=== PATIENT | male | born 1965 | race Caucasian/White ===

== ENCOUNTER 2023-03-02 02:38 | Inpatient (IN) ==
[2023-03-02] MEDS ORDERED: VANCOMYCIN CONSULT ACTIVE PRN (03:04)
[2023-03-02] MEDS ORDERED: VANCOMYCIN HCL 2,250 MG in SODIUM CHLORIDE 0.9% 500 ML IV ONE (03:04)
[2023-03-02] MEDS ORDERED: cefTRIAXone SODIUM 2,000 MG/50 ML BAG IV STA (03:04)
--- NOTE | 2023-03-02 03:10 | Emergency Department Note ---
History of Present Illness General Chief complaint: Infection Stated complaint: STAFF INFECTION ON LEFT FOOT/CALF Time Seen by Provider: 03/02/23 02:49 History of Present Illness Maximum Pain Intensity: 7 This 57-year-old prisoner presents the ER for worsening left lower leg pain and swelling for the past few days currently on Augmentin and clindamycin from the present. Patient denies chest pain, dyspnea, numbness, tingling, trauma to the area, history of IV drug abuse. Patient was concerned it started to drain and came in. Home Medications Medication Instructions Recorded Confirmed Type Prilosec 20 mg PO DAILY 03/02/23 03/02/23 History levothyroxine 125 mcg tablet 125 mcg PO DAILY 03/02/23 03/02/23 History Past Med/Surg History Social History Smoking Status: Former smoker Review of Systems A total of 10 systems reviewed and were otherwise negative Physical Exam Vital Signs Vital Signs - 24 hr 03/02/23 02:45 03/02/23 03:08 03/02/23 03:04 Temperature 36.5 C Temperature Source Temporal Artery Scan Pulse Rate 73 83 Pulse Rate [Apical] 75 Pulse Rhythm [Apical] Regular Pulse Strength [Apical] Normal Respiratory Rate 16 16 Respiratory Effort / Characteristics Non-Labored Spontaneous Non-Labored Respiratory Depth Normal Normal Respiratory Pattern Regular Blood Pressure 118/84 Blood Pressure [Right Arm] 120/58 L Blood Pressure Mean 95 Blood Pressure Mean [Right Arm] 78 Blood Pressure Position Sitting Pulse Oximetry 96 97 Oxygen Delivery Method Room Air Room Air Sepsis Recent Fever Within 48 Hours No Sepsis New/Unexplained Change in Mental Status N/A Sepsis Action Taken by Nursing No Action Required 03/02/23 03:25 03/02/23 03:34 Temperature Temperature Source Pulse Rate Pulse Rate [Apical] Pulse Rhythm [Apical] Pulse Strength [Apical] Respiratory Rate Respiratory Effort / Characteristics Non-Labored Respiratory Depth Normal Respiratory Pattern Regular Blood Pressure Blood Pressure [Right Arm] Blood Pressure Mean Blood Pressure Mean [Right Arm] Blood Pressure Position Pulse Oximetry 98 Oxygen Delivery Method Room Air Room Air Sepsis Recent Fever Within 48 Hours Sepsis New/Unexplained Change in Mental Status Sepsis Action Taken by Nursing VITALS: Vitals are noted on the nurse's note and reviewed by myself. Vital signs stable. GENERAL: White male, in no acute distress, nondiaphoretic, well-developed well- nourished. SKIN: left lower leg erythematous and edematous With serosanguineous drainage concerning for cellulitis, the rest of the skin was without rashes, erythema, edema, or bruising. There is no tenting of the skin. Capillary reflex less than 2 seconds. HEAD: Normocephalic atraumatic. EARS: External auditory canals clear, EYES: Pupils equal round and reactive to light and accommodation. Conjunctivae without injection, sclerae without icterus. Extraocular movements intact. NOSE: Patent, turbinates without inflammation or discharge. MOUTH: Mucous membranes moist. Pharynx without erythema or exudate. Uvula midline. Airway patent. Tongue does not deviate. NECK: Supple without nuchal rigidity. No lymphadenopathy. No thyromegaly. Cervical spine is nontender. No JVD. HEART: Regular rate and rhythm LUNGS: Clear to auscultation bilaterally without wheezes, rales or rhonchi. No retractions or accessory muscle use. ABDOMEN: Positive bowel sounds x 4. Normal tympanic percussion. Soft, nontender, without masses or organomegaly. Fallon sign negative. No guarding or rebound tenderness. No CVA tenderness MUSCULOSKELETAL: No muscle atrophy noted. No crepitus to the lower extremit ies. NEURO: Patient was alert and oriented to person place and time. Normal sensation to light and sharp touch. No focal neurological deficits. Course Administered Medications Vancomycin HCl 2,250 mg/ (Sodium Chloride) 545 mls @ 200 mls/hr IV NOW ONE Stop: 03/02/23 05:47 Last Admin: 03/02/23 04:03 Dose: 200 mls/hr Documented By: DALE Discontinued Medications Sodium Chloride (Nss) 1,000 mls @ 999 mls/hr IV .Q1H1M CECI Stop: 03/02/23 04:15 Last Infusion: 03/02/23 04:17 Dose: 0 mls/hr Documented By: Admin: 03/02/23 03:35 Dose: 999 mls/hr Documented By: DALE Ceftriaxone Sodium (Rocephin) 2,000 mg in 50 mls @ 100 mls/hr IV NOW STA Stop: 03/02/23 03:33 Last Infusion: 03/02/23 04:17 Dose: 0 mls/hr Documented By: Admin: 03/02/23 03:42 Dose: 100 mls/hr Documented By: DALE Medical Decision Making Medical Records Attestation: I reviewed the patient's medical records. Home Medications Current Medication List: was personally reviewed by me Laboratory Data Attestation: I reviewed the patient's lab results. 03/02/23 03:17 03/02/23 03:17 Lab Results 03/02/23 03/02/23 03/02/23 Range/Units 03:17 03:17 03:17 WBC 11.53 H (4.8-10.8) K/ul RBC 4.61 L (4.70-6.10) M/uL Hgb 14.2 (14.0-18.0) g/dl Hct 40.3 L (42.0-52.0) % MCV 87.4 (80.0-100.0) fL MCH 30.8 (25.0-34.0) pg MCHC 35.2 (32.0-36.0) g/dL RDW Std Deviation 42.0 (36.4-46.3) fL RDW Coeff of Augustine 13.1 (11.5-14.5) % Plt Count 164 (130-400) K/uL MPV 11.6 (9.4-12.4) fL Immature Gran % (Auto) 1.1 % Neut % (Auto) 57.0 % Lymph % (Auto) 26.0 % [place] % (Auto) 12.9 % Eos % (Auto) 2.6 % Baso % (Auto) 0.4 % Neut # (Auto) 6.56 H (1.40-6.50) K/uL Lymph # (Auto) 3.00 (1.20-3.40) K/uL [place] # (Auto) 1.49 H (0.11-0.59) K/uL Eos # (Auto) 0.30 (0.00-0.50) K/uL Baso # (Auto) 0.05 (0.00-0.20) K/uL Immature Gran # (Auto) 0.13 (0.01-0.20) K/uL ESR (0-20) mm/hr Sodium 135 L (136-145) mmol/L Potassium 3.2 L (3.5-5.1) mmol/L Chloride 102 (98-107) mmol/L Carbon Dioxide 26 (21-32) mmol/L Anion Gap 7 (3-11) BUN 16 (6-23) mg/dl Creatinine 0.66 (0.6-1.4) mg/dl Est Cr Clr Drug Dosing 164.3 ml/min Est GFR ( Amer) 124.4 ml/min Est GFR (Non-Af Amer) 107.3 ml/min BUN/Creatinine Ratio 24.2 H (10-20) Glucose 108 H (70-99(Fasting)) mg/dl Lactate 1.0 (0.4-2.0) mmol/L Calcium 8.5 L (8.6-10.3) mg/dl Magnesium 1.8 (1.7-2.4) mg/dl Total Bilirubin 1.0 (0.2-1.0) mg/dl Direct Bilirubin 0.2 (0-0.2) mg/dl AST 41 H (13-39) U/L ALT 38 (7-52) U/L Alkaline Phosphatase 88 (34-104) U/L Total Creatine Kinase 157 (30-223) U/L C-Reactive Protein 9.22 H (0-0.5) mg/dl Total Protein 7.3 (6.0-8.3) gm/dl Albumin 3.6 (3.4-5.0) gm/dl Procalcitonin (0-0.5) ng/ml 03/02/23 03/02/23 Range/Units 03:17 03:17 WBC (4.8-10.8) K/ul RBC (4.70-6.10) M/uL Hgb (14.0-18.0) g/dl Hct (42.0-52.0) % MCV (80.0-100.0) fL MCH (25.0-34.0) pg MCHC (32.0-36.0) g/dL RDW Std Deviation (36.4-46.3) fL RDW Coeff of Augustine (11.5-14.5) % Plt Count (130-400) K/uL MPV (9.4-12.4) fL Immature Gran % (Auto) % Neut % (Auto) % Lymph % (Auto) % [place] % (Auto) % Eos % (Auto) % Baso % (Auto) % Neut # (Auto) (1.40-6.50) K/uL Lymph # (Auto) (1.20-3.40) K/uL [place] # (Auto) (0.11-0.59) K/uL Eos # (Auto) (0.00-0.50) K/uL Baso # (Auto) (0.00-0.20) K/uL Immature Gran # (Auto) (0.01-0.20) K/uL ESR 59 H (0-20) mm/hr Sodium (136-145) mmol/L Potassium (3.5-5.1) mmol/L Chloride (98-107) mmol/L Carbon Dioxide (21-32) mmol/L Anion Gap (3-11) BUN (6-23) mg/dl Creatinine (0.6-1.4) mg/dl Est Cr Clr Drug Dosing ml/min Est GFR ( Amer) ml/min Est GFR (Non-Af Amer) ml/min BUN/Creatinine Ratio (10-20) Glucose (70-99(Fasting)) mg/dl Lactate (0.4-2.0) mmol/L Calcium (8.6-10.3) mg/dl Magnesium (1.7-2.4) mg/dl Total Bilirubin (0.2-1.0) mg/dl Direct Bilirubin (0-0.2) mg/dl AST (13-39) U/L ALT (7-52) U/L Alkaline Phosphatase (34-104) U/L Total Creatine Kinase (30-223) U/L C-Reactive Protein (0-0.5) mg/dl Total Protein (6.0-8.3) gm/dl Albumin (3.4-5.0) gm/dl Procalcitonin 0.39 (0-0.5) ng/ml Imaging Data Attestation: I personally reviewed and interpreted this imaging study as fol lows: [facility] Narrative Prior records reviewed and summarized as above. Triage Nursing notes reviewed. Additional history obtained from correctional officers. The patient's history was concerning for swelling and redness of the skin. Differential diagnosis: Etiologies such as cellulitis, abscess, MRSA infection, DVT, necrotizing fasciitis, dermatitis, drug eruption, as well as others were entertained.. Physical examination: The physical examination was consistent with cellulitis ER treatment provided: Rocephin, clindamycin and vancomycin were ordered On reassessment the patient felt better. Diagnostics interpreted by me: The labs Independently Interpreted by myself revealed leukocytosis, elevated inflammatory markers Blood cultures pending Imaging studies: Tib-fib x-ray with soft tissue swelling with no fracture, foreign body or gas seen per my independent interpretation Chest x-ray with no acute consolidation, pneumothorax or free air per my independent interpretation DVT ultrasound with no obvious DVT per my independent interpretation Consultation: A consultation was placed with the hospitalist. The case was discussed and diagnostics were reviewed. The patient was evaluated in the ER for further treatment. This appears to be isolated cellulitis. The cellulitis is quite extensive. Patient was started on broad-spectrum antibiotics. Medicine was consulted and case discussed. He will be admitted to the hospital for further evaluation and treatment. By the evaluation outlined above emergent etiologies such as abscess, necrotizing fasciitis, DVT, as well as others were deemed relatively unlikely. The pt informed about the findings as listed above. All questions were answered and pleased with the treatment. The chart was completed utilizing [employer] Speech voice recognition software. Grammatical errors, random word insertions, pronoun errors, and incomplete sentences are an occassional consequence of this system due to software limitations, ambient noise, and hardware issues. Any formal questions or concerns about the content, text, or information contained within the body of this dictation should be directly addressed to the physician assistant housekeeping manager for clarification. Impression & Plan Cellulitis of left leg Discharge Plan Visit Data Chief Complaint: Infection Stated Complaint: STAFF INFECTION ON LEFT FOOT/CALF ED Provider: Caleb Lopez ED Midlevel Provider: Chrissie Marx Discharge Problem: Cellulitis of left leg Patient Disposition: Admitted As Inpatient Condition: Fair Forms Stand Alone Forms: [facility] [employer] Prescriptions Prescriptions: No Action levothyroxine 125 mcg Tablet 125 mcg PO DAILY Prilosec 20 mg 20 mg PO DAILY Referrals Referrals: PCP,NO [Physician] -
[2023-03-02] MEDS ORDERED: SODIUM CHLORIDE 0.9% 1,000 ML IV SCH ×2 (03:15→05:54)
[2023-03-02 03:32] LABS: Basophils # (auto) 0.05 K/uL (0.00-0.20); Basophils % (auto) 0.4 %; Eosinophils % (auto) 2.6 %; Hematocrit (blood only) 40.3 % (42.0-52.0); Hemoglobin 14.2 g/dl (14.0-18.0); Immature Granulocytes # (auto) 0.13 K/uL (0.01-0.20); Immature Granulocytes % (auto) 1.1 %; Mean Corpuscular Hemoglobin 30.8 pg (25.0-34.0); Mean Corpuscular Hgb Conc 35.2 g/dL (32.0-36.0); Mean Corpuscular Volume 87.4 fL (80.0-100.0); Mean Platelet Volume 11.6 fL (9.4-12.4); Monocytes # (auto) 1.49 K/uL (0.11-0.59); Monocytes % (auto) 12.9 %; Neutrophils # (auto) 6.56 K/uL (1.40-6.50); Platelet Count 164 K/uL (130-400); RDW Coefficient of Variation 13.1 % (11.5-14.5); Red Blood Count 4.61 M/uL (4.70-6.10); White Blood Count 11.53 K/ul (4.8-10.8)
[2023-03-02 03:47] LABS: Albumin Level 3.6 gm/dl (3.4-5.0); BUN Creatinine Ratio 24.2 (10-20); Bilirubin Direct 0.2 mg/dl (0-0.2); C Reactive Protein 9.22 mg/dl (0-0.5); Calcium 8.5 mg/dl (8.6-10.3); Creatinine Clr Calc Pharmacy 164.3 ml/min; Est GFR (African American) 124.4 ml/min; Est GFR (Non-African American) 107.3 ml/min; Magnesium 1.8 mg/dl (1.7-2.4); Potassium 3.2 mmol/L (3.5-5.1); Total Protein 7.3 gm/dl (6.0-8.3)
[2023-03-02] MEDS ORDERED: CLINDAMYCIN/D5W 900 MG/50 ML BAG IV ONE (03:48)
[2023-03-02] MEDS ORDERED: POTASSIUM CHLORIDE CRTAB 20 MEQ TABCR PO STA (04:17)
--- NOTE | 2023-03-02 04:51 | History & Physical Report ---
Date of Service March 02, 2023 Assessment & Plan (1) Cellulitis of left leg: Plan: 57-year-old male with past med significant for hypothyroidism and GERD presents from correction with ongoing left leg cellulitis. Left leg cellulitis Failed outpatient treatment with Augmentin and clindamycin Lower part of the leg blisters seen and also weeping Received Vanco Rocephin and clindamycin in the ER We will continue with Vanco and Zosyn We will follow Doppler Follow cultures Will follow response Consult ID for further recommendations History of hypothyroidism On Synthyroid Follow TSH GERD Prilosec DVT prophylaxis Lovenox Disposition Medical floor Full code History of Present Illness Chief Complaint: Left leg cellulitis Primary Care Provider: [facility] 57-year-old male with past med significant for hypothyroidism and GERD presents with ongoing left leg cellulitis. Patient states the swelling and redness started about 4 to 5 days ago and initially was not that bad. He was having shaking chills. Chills made him stiff and sore all over. Seems he was treated with Augmentin and clindamycin and is not getting better and so he was brought to the hospital. left Lower part of the leg he is also weeping. Seems was treated with hydrochlorothiazide. Denies any headache. Says he has cataract in the right eye and vision is poor in that eye. No sore throat. No cough. No difficulty swallowing. Appetite is down. No chest pain. No shortness of breath. Some sicknessin stomach. Constipated last for 4 days. Urinating okay. Currently hemodynamically stable. Somewhat hard to hear Past medical history as mentioned above. Past surgical history. As per patient he had cardiac surgery at age 2. Does not know what Surgery was it. Social history. Used to smoke 12 cigarettes daily for 35 years until he was imprisoned last February. Last drink was last February. Used to smoke marijuana until he was imprisoned last February. Family history. Mother from aneurysm as per patient. Allergies Allergy/AdvReac Type Severity Reaction Status Date / Time No Known Allergies Allergy Verified 03/02/23 07:08 Home Medications Medication Instructions Recorded Confirmed Type Prilosec 20 mg PO DAILY 03/02/23 03/02/23 History levothyroxine 125 mcg tablet 125 mcg PO DAILY 03/02/23 03/02/23 History Past Med/Surg History Social History Smoking Status: Current every day smoker Tobacco Type: Cigarettes Cigarettes Per Day: 12; Second Hand Exposure: No; Do You Dip or Chew Tobacco: No; Tobacco Cessation Education Requested by Patient: No Hx Alcohol Use: No Hx Substance Use: Yes Last Used Substance: Unknown Last Used Substance Other:: Previous used before Half-Way. Preferred Language: Korean Communication Ability: Effective Irrigation Flume Layer Required: No Beliefs That Will Affect Care: None Current Living Situation: Other Current Living Situation Comment: [facility] Other Information That Helps Us Care for You: No Feels Safe at Home: Yes Safety Concerns: Feels Safe At This Time Assistive Devices: Hospital Bed and Walker Review of Systems Review of Systems: All systems reviewed & are unremarkable except as noted in HPI & below Physical Exam Physical Exam: General- Not in distress Head- atraumatic Eyes- PERRL. ENT- oropharynx clear Neck- supple, no JVD. Lungs- clear to auscultation , No wheezing or crackles. Heart- regular rhythm; no murmur, no gallop. Abdomen- normal bowel sounds, soft, nontender, no distension. Extremities- Left lower extremity erythematous knee down and baird region and ankle swollen and drainage seen Neuro- alert, oriented x 3; PERRL, no facial palsy; no dysarthria; obeys commands, moves extremities. Results & Data Results & Data Vital Signs (Past 12 Hours) Vital Signs Temp Pulse Pulse Resp BP BP Pulse Ox 03/02/23 03:25 98 03/02/23 03:04 75 16 120/58 L 97 03/02/23 03:08 83 03/02/23 02:45 36.5 C 73 16 118/84 96 O2 Del Method 03/02/23 03:25 Room Air 03/02/23 03:04 Room Air 03/02/23 03:08 03/02/23 02:45 Room Air Diagnostic Findings Laboratory Results WBC 11.53 K/ul (4.8-10.8) H 03/02/23 03:17 RBC 4.61 M/uL (4.70-6.10) L 03/02/23 03:17 Hgb 14.2 g/dl (14.0-18.0) 03/02/23 03:17 Hct 40.3 % (42.0-52.0) L 03/02/23 03:17 MCV 87.4 fL (80.0-100.0) 03/02/23 03:17 MCH 30.8 pg (25.0-34.0) 03/02/23 03:17 MCHC 35.2 g/dL (32.0-36.0) 03/02/23 03:17 RDW Std Deviation 42.0 fL (36.4-46.3) 03/02/23 03:17 RDW Coeff of Augustine 13.1 % (11.5-14.5) 03/02/23 03:17 Plt Count 164 K/uL (130-400) 03/02/23 03:17 MPV 11.6 fL (9.4-12.4) 03/02/23 03:17 Immature Gran % (Auto) 1.1 % 03/02/23 03:17 Neut % (Auto) 57.0 % 03/02/23 03:17 Lymph % (Auto) 26.0 % 03/02/23 03:17 [place] % (Auto) 12.9 % 03/02/23 03:17 Eos % (Auto) 2.6 % 03/02/23 03:17 Baso % (Auto) 0.4 % 03/02/23 03:17 Neut # (Auto) 6.56 K/uL (1.40-6.50) H 03/02/23 03:17 Lymph # (Auto) 3.00 K/uL (1.20-3.40) 03/02/23 03:17 [place] # (Auto) 1.49 K/uL (0.11-0.59) H 03/02/23 03:17 Eos # (Auto) 0.30 K/uL (0.00-0.50) 03/02/23 03:17 Baso # (Auto) 0.05 K/uL (0.00-0.20) 03/02/23 03:17 Immature Gran # (Auto) 0.13 K/uL (0.01-0.20) 03/02/23 03:17 ESR 59 mm/hr (0-20) H 03/02/23 03:17 Sodium 135 mmol/L (136-145) L 03/02/23 03:17 Potassium 3.2 mmol/L (3.5-5.1) L 03/02/23 03:17 Chloride 102 mmol/L (98-107) 03/02/23 03:17 Carbon Dioxide 26 mmol/L (21-32) 03/02/23 03:17 Anion Gap 7 (3-11) 03/02/23 03:17 BUN 16 mg/dl (6-23) 03/02/23 03:17 Creatinine 0.66 mg/dl (0.6-1.4) 03/02/23 03:17 Est Cr Clr Drug Dosing 164.3 ml/min 03/02/23 03:17 Est GFR ( Amer) 124.4 ml/min 03/02/23 03:17 Est GFR (Non-Af Amer) 107.3 ml/min 03/02/23 03:17 BUN/Creatinine Ratio 24.2 (10-20) H 03/02/23 03:17 Glucose 108 mg/dl (70-99(Fasting)) H 03/02/23 03:17 Lactate 1.0 mmol/L (0.4-2.0) 03/02/23 03:17 Calcium 8.5 mg/dl (8.6-10.3) L 03/02/23 03:17 Magnesium 1.8 mg/dl (1.7-2.4) 03/02/23 03:17 Total Bilirubin 1.0 mg/dl (0.2-1.0) 03/02/23 03:17 Direct Bilirubin 0.2 mg/dl (0-0.2) 03/02/23 03:17 AST 41 U/L (13-39) H 03/02/23 03:17 ALT 38 U/L (7-52) 03/02/23 03:17 Alkaline Phosphatase 88 U/L (34-104) 03/02/23 03:17 Total Creatine Kinase 157 U/L (30-223) 03/02/23 03:17 C-Reactive Protein 9.22 mg/dl (0-0.5) H 03/02/23 03:17 Total Protein 7.3 gm/dl (6.0-8.3) 03/02/23 03:17 Albumin 3.6 gm/dl (3.4-5.0) 03/02/23 03:17 Procalcitonin 0.39 ng/ml (0-0.5) 03/02/23 03:17 Code Status & VTE Plan VTE Prophylaxis Plan VTE Prophylaxis will be ordered: Yes
[2023-03-02 05:09] LABS: Appearance Urine Clear (Clear); Bilirubin Urine Negative (Negative); Blood Urine Negative (Negative); Color Urine Dark Yellow; Glucose Urine UA Negative (Negative); Ketones Urine Negative (Negative); Leukocyte Esterase Urine Negative (Negative); Nitrite Urine Negative (Negative); Protein Urine Negative (Negative); Specific Gravity Urine 1.028 (1.000-1.030); Urobilinogen Urine Negative (Negative)
[2023-03-02] MEDS ORDERED: HYDROmorphone INJ 0.5 MG/0.5 ML SYR IV PRN (05:54)
[2023-03-02] MEDS ORDERED: POLYETHYLENE (MIRALAX) 17 GM PACK PO PRN (05:54)
[2023-03-02] MEDS ORDERED: ACETAMINOPHEN 325 MG TAB PO PRN (05:54)
[2023-03-02] MEDS ORDERED: Patient's ALLERGY Info needs ENTERED STA (05:56)
--- NOTE | 2023-03-02 06:44 | Ultrasound Report ---
ULTRASOUND LEFT LOWER EXTREMITY VENOUS CLINICAL HISTORY: Left leg swelling and erythema. COMPARISON STUDY: No priors. TECHNIQUE: Real-time, grayscale, and color Doppler sonography of the deep veins of the left lower ext remity was performed from the inguinal crease to the calf. Compression and augmentation were utilized . FINDINGS: There is no sonographic evidence of deep venous thrombosis identified in the left lower ext remity. The common femoral, superficial femoral, and popliteal veins are patent and normally compress ible. The greater saphenous vein and the profunda femoris vein at the junction with the common femora l vein are clear. The visualized calf veins are patent. Soft tissue edema is noted in the left leg. P rominent left groin nodes are likely reactive. IMPRESSION: There is no sonographic evidence of deep venous thrombosis identified in the left lower e xtremity. ACT 112: Negative or not required by law. Electronically signed by: Eduar Landaverde M.D. 03/02/2023 6:41 AM
--- NOTE | 2023-03-02 06:55 | XRay Report ---
LEFT TIBIA AND FIBULA 2 VIEWS CLINICAL HISTORY: Infection. FINDINGS: AP and lateral views of the left tibia and fibula are obtained. No prior studies are availa ble for comparison at the time of dictation. The skeletal structures appear osteopenic. There is no r adiographic evidence of left tibial or fibular fracture. No bony erosion or periostitis is seen. The knee and ankle joints are grossly maintained. Soft tissue edema is present throughout the left leg. N o radiodense foreign body or soft tissue gas is seen. There is a large plantar heel spur. IMPRESSION: Soft tissue edema with no acute bony abnormality identified. Electronically signed by: Eduar Landaverde M.D. 03/02/2023 6:54 AM
--- NOTE | 2023-03-02 07:24 | XRay Report ---
SINGLE VIEW CHEST CLINICAL HISTORY: Sepsis. FINDINGS: An AP, portable, upright chest radiograph is compared obtained. No prior studies are availa ble for comparison at the time of dictation. The heart is enlarged. There is pulmonary vascular conge stion. There is bibasilar scarring/atelectasis. No airspace consolidation or large pleural effusion i s identified. No pneumothorax is seen. The skeletal structures are osteopenic. The bony thorax is maria d ssly intact. IMPRESSION: Cardiomegaly with pulmonary vascular congestion. ACT 112: Negative or not required by law. Electronically signed by: Eduar Landaverde M.D. 03/02/2023 7:22 AM
[2023-03-02] MEDS ORDERED: PIPERACILLIN/TAZOBACTAM 4.5 GM in DEXTROSE 5% MINI-B 100 ML IV ONE (07:30)
[2023-03-02 07:43] LABS: Basophils # (auto) 0.06 K/uL (0.00-0.20); Basophils % (auto) 0.5 %; Eosinophils # (auto) 0.28 K/uL (0.00-0.50); Eosinophils % (auto) 2.2 %; Hematocrit (blood only) 38.3 % (42.0-52.0); Hemoglobin 13.5 g/dl (14.0-18.0); Immature Granulocytes # (auto) 0.14 K/uL (0.01-0.20); Immature Granulocytes % (auto) 1.1 %; Lymphocytes # (auto) 2.73 K/uL (1.20-3.40); Lymphocytes % (auto) 21.6 %; Mean Corpuscular Hemoglobin 30.8 pg (25.0-34.0); Mean Corpuscular Hgb Conc 35.2 g/dL (32.0-36.0); Mean Corpuscular Volume 87.2 fL (80.0-100.0); Monocytes # (auto) 1.51 K/uL (0.11-0.59); Neutrophils # (auto) 7.89 K/uL (1.40-6.50); Neutrophils % (auto) 62.6 %; Platelet Count 155 K/uL (130-400); RDW Coefficient of Variation 13.2 % (11.5-14.5); RDW Standard Deviation 42.5 fL (36.4-46.3); Red Blood Count 4.39 M/uL (4.70-6.10); White Blood Count 12.61 K/ul (4.8-10.8)
[2023-03-02 07:54] LABS: BUN Creatinine Ratio 21.9 (10-20); Calcium 8.3 mg/dl (8.6-10.3); Creatinine Clr Calc Pharmacy 167.9 ml/min; Est GFR (Non-African American) 108.7 ml/min; Magnesium 1.8 mg/dl (1.7-2.4); Potassium 3.1 mmol/L (3.5-5.1)
[2023-03-02 08:09] LABS: Thyroid Stimulating Hormone 0.804 uIu/ml (0.300-4.500)
[2023-03-02] MEDS: ENOXAPARIN INJ 40 MG/0.4 ML SYR SQ SCH (09:28)
[2023-03-02] MEDS: PANTOprazole 40 MG TAB PO SCH (09:28)
[2023-03-02] MEDS: LEVOTHYROXINE SODIUM 125 MCG TABLET PO SCH (09:28)
--- NOTE | 2023-03-02 09:46 | Pharmacy Report ---
Pharmacy PK ABX Note - Date of Service March 02, 2023 - Assessment and Plan Assessment 57 year old M receiving Vancomycin and Zosyn for treatment of LLE cellulitis. * Day #1 of antimicrobial therapy. * PMHx significant for incarceration. * HPI: Ongoing LLE cellulitis that has been ongoing for 4-5 days. Started on Augmentin and Clindamycin without improvement. Leg started weeping and developed chills so was brought to the hospital. * Labs/Vitals: Afebrile. Leukocytosis of 12.6k. SCr 0.64 mg/dL, stable. Lactate normal. Procalcitonin 0.39 ng/mL. * Micro: MRSA nasal swab positive. Blood cultures pending. * Vancomycin ordered empirically so it will discontinue after 48 hours of t herapy. Plan Vancomycin * Loading dose: 2250 mg IV x 1 * Maintenance dose: 1000 mg IV every 8 hours * Regimen is predicted to achieve target AUC/DESHAWN of 400-600 mg/L.hr * Random level ordered for: 03/03/23 Zosyn * 4.5 g IV every 8 hours Pharmacy will continue to follow and will adjust dose/frequency as necessary. Thank you. Pharmacy has transitioned to AUC monitoring for vancomycin. AUC/DESHAWN is the preferred PK/PD target and is associated with decreased risk of nephrotoxicity compared to traditional trough targets.
[2023-03-02] MEDS ORDERED: PIPERACILLIN/TAZOBACTAM 4.5 GM in DEXTROSE 5% MINI-B 100 ML IV SCH (12:00)
[2023-03-02] MEDS: VANCOMYCIN HCL 1,000 MG in SODIUM CHLORIDE 0.9% 250 ML IV SCH ×2 (12:18→21:03)
--- NOTE | 2023-03-02 12:38 | Electrocardiogram Report ---
Test Reason : Blood Pressure : / mmHG Vent. Rate : 077 BPM Atrial Rate : 077 BPM P-R Int : 160 ms QRS Dur : 096 ms QT Int : 416 ms P-R-T Axes : 024 029 033 degrees QTc Int : 470 ms Normal sinus rhythm Normal ECG No previous ECGs available Confirmed by Leon Mack ([id number]) on 03/02/2023 12:38:07 PM Referred By: [facility] Confirmed By:Leno Mack
--- NOTE | 2023-03-02 13:57 | Infectious Disease Consult ---
Date of Service March 02, 2023 Telehealth Information I performed this visit using a real-time telehealth connection between my location and the patients location ([facility]). After connecting through interactive tele-video, patient was identified by name and date of and/or wristband check.Patient (or authorized healthcare sales representative marine supplies) was informed that this was a telemedicine visit and it was being conducted confidentially over secure lines. My office door was closed and no one else was present in the room with me.Patient (or authorized healthcare sales representative marine supplies) provided consent to proceed with the visit, expressed an understanding of privacy and security of the telemedicine visit, and gave permission to have a hospital sales representative marine supplies in the room in order to assist with the visit and to conduct portions of the visit, as needed. I informed the patient (or authorized healthcare sales representative marine supplies) that I reviewed their record and presented the opportunity for them to ask any questions regarding the visit today. The patient agreed to participate. Assessment & Plan (1) Cellulitis of left leg: Plan: Assessment: LLE cellulitis Plan: - Stop zosyn - Continue vancomycin iv to maintain AUC 400-600 or vancomycin trough 15-20 - F/u blood cultures - Monitor on vancomycin iv - Granted that the blood cultures remains negative and cellulitis improves on vancomycin iv, may consider to switching to doxycycline 100 mg po bid to complete at least 14 days (ending on 03/05/23) of abx therapy if not more. ABX should be given until resolution of cellulitis. - Elevate LLE - Discussed healthy skin hygiene and ways to prevent microinjuries on skin. The patient voiced understanding - Please, contact ID if the blood culture turn positive or the infection does not improve Suspecting MRSA infection based on the clinical presentation and physical finding: perhaps, a community-acquired strain resistant to clindamycin. More than 50% of [id number] visit was spent counseling and coordinating care pertaining to the patient's infection diagnosis, additional work-up, and treatment option(s) as well as potential adverse events of the treatment. History of Present Illness History of Present Illness This 57 y/o male from assisted w/ hx of intermittent LE swelling of unclear etiology, hypothyroidism and GERD, presented to [facility] on 03/02/23 for L leg cellulitis w/ bullous lesions. He started noticing swelling, pain and redness on LLE about 4-5 days prior to admission, not improving on augmentin and clindamycin. He admits to "rubbing" his L leg when he had swelling ("it was itching") prior to onset of redness and pain. He has noticed yellowish fluid w/ blisters. No obvious f/c, but he is not sure. On admission no fever but mild leukocytosis and elevated CRP He is currently resting comfortably in bed. No f/c, n/v, abd pain, diarrhea, coughing, cp, sob, or urinary symptoms. He denies any injury/trauma or injection on LLE. Allergies Allergy/AdvReac Type Severity Reaction Status Date / Time No Known Allergies Allergy Verified 03/02/23 07:08 Home Medications Medication Instructions Recorded Confirmed Type Prilosec 20 mg PO DAILY 03/02/23 03/02/23 History levothyroxine 125 mcg tablet 125 mcg PO DAILY 03/02/23 03/02/23 History Patient History Social History Smoking Status: Current every day smoker Tobacco Type: Cigarettes Cigarettes Per Day: 12; Second Hand Exposure: No; Do You Dip or Chew Tobacco: No; Tobacco Cessation Education Requested by Patient: No Hx Alcohol Use: No Hx Substance Use: Yes Last Used Substance: Unknown Last Used Substance Other:: Previous used before Longterm. Preferred Language: American Communication Ability: Effective Music Specialist Required: No Beliefs That Will Affect Care: None Current Living Situation: Other Current Living Situation Comment: [facility] Other Information That Helps Us Care for You: No Feels Safe at Home: Yes Safety Concerns: Feels Safe At This Time Assistive Devices: Hospital Bed and Walker Review of Systems as above and all others negative Physical Exam Gen: no acute distress Neuro: Alert, awake, Oriented x3, conversant and following commands Ext: erythema and swelling from above ankle to 1/3 proximal to L leg, circumferential, bullous lesions mostly on posterior leg w/ yellowish clear fluid noted. Warmth noted by the nurse at bedside w/ tenderness reported by patient Results & Data Vital Signs (Past 12 Hours) Vital Signs Temp Pulse Pulse Pulse Resp BP BP 03/02/23 07:30 03/02/23 05:50 03/02/23 05:50 03/02/23 05:50 36.5 C 78 16 119/83 03/02/23 05:50 36.5 C 78 16 119/83 03/02/23 05:31 78 19 101/54 L 03/02/23 05:30 73 12 03/02/23 05:00 75 21 120/73 03/02/23 04:57 75 12 03/02/23 04:01 78 15 103/70 03/02/23 04:00 77 15 03/02/23 03:30 82 21 108/74 03/02/23 03:12 83 19 120/58 L 03/02/23 03:09 87 21 03/02/23 05:00 03/02/23 03:34 03/02/23 03:25 03/02/23 03:04 75 16 03/02/23 03:08 83 03/02/23 02:45 36.5 C 73 16 118/84 BP Pulse Ox O2 Del Method 03/02/23 07:30 Room Air 03/02/23 05:50 Room Air 03/02/23 05:50 Room Air 03/02/23 05:50 97 Room Air 03/02/23 05:50 97 Room Air 03/02/23 05:31 98 03/02/23 05:30 97 03/02/23 05:00 98 03/02/23 04:57 97 03/02/23 04:01 98 Room Air 03/02/23 04:00 98 03/02/23 03:30 97 Room Air 03/02/23 03:12 98 Room Air 03/02/23 03:09 03/02/23 05:00 Room Air 03/02/23 03:34 Room Air 03/02/23 03:25 98 Room Air 03/02/23 03:04 120/58 L 97 Room Air 03/02/23 03:08 03/02/23 02:45 96 Room Air Laboratory Results Labs WBC 12.61K H 13.5 Plt 155K Cr 0.64 LFT ast 41 Lactate 1.0 ESR 59 CRP 9.22 MRSA screen (03/02/23): positive Blood cx (03/02): result pending CXR (03/02/23): Cardiomegaly with pulmonary vascular congestion. XR tib/fib (03/02): Soft tissue edema with no acute bony abnormality identified. Doppler (03/02): There is no sonographic evidence of deep venous thrombosis identified in the left lower extremity.
--- NOTE | 2023-03-02 20:21 | Communication Note ---
Date of Service: March 02, 2023 Pt seen in the AM. Was eating. Denied fevers, chills, N/V. States that he had been scratching the lower extremity quite a bit before his symptoms started. ID recommending continuing with Vancomycin only, discontinuing Zosyn. Zosyn discontinued. Continue to monitor.
[2023-03-02] MEDS: CYCLOBENZAPRINE HCL 5 MG TAB PO PRN (21:09)
[2023-03-03] MEDS: VANCOMYCIN HCL 1,000 MG in SODIUM CHLORIDE 0.9% 250 ML IV SCH ×2 (04:37→12:58)
[2023-03-03] MEDS: LEVOTHYROXINE SODIUM 125 MCG TABLET PO SCH (05:58)
[2023-03-03] MEDS: PANTOprazole 40 MG TAB PO SCH (08:16)
[2023-03-03] MEDS: ENOXAPARIN INJ 40 MG/0.4 ML SYR SQ SCH (08:16)
[2023-03-03 09:09] LABS: Basophils # (auto) 0.05 K/uL (0.00-0.20); Basophils % (auto) 0.6 %; Eosinophils # (auto) 0.23 K/uL (0.00-0.50); Eosinophils % (auto) 2.7 %; Hematocrit (blood only) 37.1 % (42.0-52.0); Hemoglobin 12.6 g/dl (14.0-18.0); Immature Granulocytes # (auto) 0.11 K/uL (0.01-0.20); Immature Granulocytes % (auto) 1.3 %; Lymphocytes # (auto) 2.06 K/uL (1.20-3.40); Lymphocytes % (auto) 24.2 %; Mean Corpuscular Hemoglobin 30.7 pg (25.0-34.0); Mean Corpuscular Volume 90.3 fL (80.0-100.0); Mean Platelet Volume 11.4 fL (9.4-12.4); Monocytes # (auto) 0.91 K/uL (0.11-0.59); Monocytes % (auto) 10.7 %; Neutrophils # (auto) 5.15 K/uL (1.40-6.50); Neutrophils % (auto) 60.5 %; Platelet Count 156 K/uL (130-400); RDW Coefficient of Variation 13.2 % (11.5-14.5); RDW Standard Deviation 43.8 fL (36.4-46.3); Red Blood Count 4.11 M/uL (4.70-6.10); White Blood Count 8.51 K/ul (4.8-10.8)
[2023-03-03 09:53] LABS: Albumin Globulin Ratio 0.9 (0.9-2); BUN Creatinine Ratio 16.1 (10-20); Bilirubin,Total 0.8 mg/dl (0.2-1.0); Calcium 8.4 mg/dl (8.6-10.3); Creatinine Clr Calc Pharmacy 191.9 ml/min; Est GFR (African American) 133.1 ml/min; Est GFR (Non-African American) 114.8 ml/min; Globulin 3.2 gm/dl (2.5-4.0); Magnesium 1.7 mg/dl (1.7-2.4); Phosphorus 2.4 mg/dl (2.5-4.9); Potassium 3.9 mmol/L (3.5-5.1); Total Protein 6.2 gm/dl (6.0-8.3)
[2023-03-03] MEDS ORDERED: VANCOMYCIN LEVEL ONE (11:30)
--- NOTE | 2023-03-03 13:12 | Hospitalist Progress Note ---
Date of Service March 03, 2023 Assessment & Plan (1) Cellulitis of left leg: Plan: 57-year-old male with past med significant for hypothyroidism and GERD presents from [facility] with ongoing left leg cellulitis. Left leg cellulitis Patient presents with left leg cellulitis below the knee. Failed outpatient Augmentin and clindamycin. Lower extremity with blisters and significant swelling, erythema Venous duplex does not show any DVT Blood culture no growth in 24 hours Continue on vancomycin as recommended by infectious disease. Vancomycin trough to be between 15-20. Elevate left lower extremity History of hypothyroidism On Synthyroid Follow TSH GERD Prilosec DVT prophylaxis Lovenox Disposition Medical floor Full code Please note the above document was generated using voice recognition software. It may contain grammatical, syntax or spelling errors. Any formal questions or concerns about the content, text or information contained within the body of this dictation should be directly addressed to the provider for clarification Admission and Anticipated Discharge Date Admission Date: March 02, 2023 Subjective Patient seen and examined at bedside. He is comfortably lying in the bed; not in any distress. He reports that the swelling has slightly improved compared to admission. Review of Systems Review of Systems: All systems reviewed & are unremarkable except as noted in Subjective Physical Exam Physical Exam: General- Not in distress Head- atraumatic Eyes- PERRL. ENT- oropharynx clear Neck- supple, no JVD. Lungs- clear to auscultation , No wheezing or crackles. Heart- regular rhythm; no murmur, no gallop. Abdomen- normal bowel sounds, soft, nontender, no distension. Extremities- Left lower extremity erythematous around the seen with serous discharge. No visible wound present. Some scratch mckeon present. Neuro- alert, oriented x 3; PERRL, no facial palsy; no dysarthria; obeys commands, moves extremities. Results & Data Results & Data Vital Signs (Past 12 Hours) Vital Signs Temp Pulse Resp BP Pulse Ox O2 Del Method 03/03/23 07:25 36.7 C 75 16 108/75 98 Room Air Laboratory Results Laboratory Results WBC 8.51 K/ul (4.8-10.8) 03/03/23 08:33 RBC 4.11 M/uL (4.70-6.10) L 03/03/23 08:33 Hgb 12.6 g/dl (14.0-18.0) L 03/03/23 08:33 Hct 37.1 % (42.0-52.0) L 03/03/23 08:33 MCV 90.3 fL (80.0-100.0) 03/03/23 08:33 MCH 30.7 pg (25.0-34.0) 03/03/23 08:33 MCHC 34.0 g/dL (32.0-36.0) 03/03/23 08:33 RDW Std Deviation 43.8 fL (36.4-46.3) 03/03/23 08:33 RDW Coeff of [place] 13.2 % (11.5-14.5) 03/03/23 08:33 Plt Count 156 K/uL (130-400) 03/03/23 08:33 MPV 11.4 fL (9.4-12.4) 03/03/23 08:33 Immature Gran % (Auto) 1.3 % 03/03/23 08:33 Neut % (Auto) 60.5 % 03/03/23 08:33 Lymph % (Auto) 24.2 % 03/03/23 08:33 [place] % (Auto) 10.7 % 03/03/23 08:33 Eos % (Auto) 2.7 % 03/03/23 08:33 Baso % (Auto) 0.6 % 03/03/23 08:33 Neut # (Auto) 5.15 K/uL (1.40-6.50) 03/03/23 08:33 Lymph # (Auto) 2.06 K/uL (1.20-3.40) 03/03/23 08:33 [place] # (Auto) 0.91 K/uL (0.11-0.59) H 03/03/23 08:33 Eos # (Auto) 0.23 K/uL (0.00-0.50) 03/03/23 08:33 Baso # (Auto) 0.05 K/uL (0.00-0.20) 03/03/23 08:33 Immature Gran # (Auto) 0.11 K/uL (0.01-0.20) 03/03/23 08:33 ESR 59 mm/hr (0-20) H 03/02/23 03:17 Sodium 138 mmol/L (136-145) 03/03/23 08:33 Potassium 3.9 mmol/L (3.5-5.1) D 03/03/23 08:33 Chloride 106 mmol/L (98-107) 03/03/23 08:33 Carbon Dioxide 27 mmol/L (21-32) 03/03/23 08:33 Anion Gap 5 (3-11) 03/03/23 08:33 BUN 9 mg/dl (6-23) 03/03/23 08:33 Creatinine 0.56 mg/dl (0.6-1.4) L 03/03/23 08:33 Est Cr Clr Drug Dosing 191.9 ml/min 03/03/23 08:33 Est GFR ( Amer) 133.1 ml/min 03/03/23 08:33 Est GFR (Non-Af Amer) 114.8 ml/min 03/03/23 08:33 BUN/Creatinine Ratio 16.1 (10-20) 03/03/23 08:33 Glucose 110 mg/dl (70-99(Fasting)) H 03/03/23 08:33 Lactate 1.0 mmol/L (0.4-2.0) 03/02/23 03:17 Calcium 8.4 mg/dl (8.6-10.3) L 03/03/23 08:33 Ionized Calcium 1.15 mmol/L (1.12-1.32) 03/03/23 08:33 Phosphorus 2.4 mg/dl (2.5-4.9) L 03/03/23 08:33 Magnesium 1.7 mg/dl (1.7-2.4) 03/03/23 08:33 Total Bilirubin 0.8 mg/dl (0.2-1.0) 03/03/23 08:33 Direct Bilirubin 0.2 mg/dl (0-0.2) 03/02/23 03:17 AST 30 U/L (13-39) 03/03/23 08:33 ALT 30 U/L (7-52) 03/03/23 08:33 Alkaline Phosphatase 71 U/L (34-104) 03/03/23 08:33 Total Creatine Kinase 157 U/L (30-223) 03/02/23 03:17 C-Reactive Protein 9.22 mg/dl (0-0.5) H 03/02/23 03:17 Total Protein 6.2 gm/dl (6.0-8.3) 03/03/23 08:33 Albumin 3.0 gm/dl (3.4-5.0) L 03/03/23 08:33 Globulin 3.2 gm/dl (2.5-4.0) 03/03/23 08:33 Albumin/Globulin Ratio 0.9 (0.9-2) 03/03/23 08:33 Procalcitonin 0.39 ng/ml (0-0.5) 03/02/23 03:17 TSH 0.804 uIu/ml (0.300-4.500) 03/02/23 07:01 Urine Color Dark Yellow 03/02/23 04:55 Urine Appearance Clear (Clear) 03/02/23 04:55 Urine pH 6.0 (4.5-7.5) 03/02/23 04:55 Ur Specific [place] 1.028 (1.000-1.030) 03/02/23 04:55 Urine Protein Negative (Negative) 03/02/23 04:55 Urine Glucose (UA) Negative (Negative) 03/02/23 04:55 Urine Ketones Negative (Negative) 03/02/23 04:55 Urine Blood Negative (Negative) 03/02/23 04:55 Urine Nitrite Negative (Negative) 03/02/23 04:55 Urine Bilirubin Negative (Negative) 03/02/23 04:55 Urine Urobilinogen Negative (Negative) 03/02/23 04:55 Ur Leukocyte Esterase Negative (Negative) 03/02/23 04:55 Nasal Screen MRSA (PCR) Positive (Negative) A 03/02/23 08:05 Impressions Chest X-Ray 03/02/23 03:04 SINGLE VIEW CHEST CLINICAL HISTORY: Sepsis. FINDINGS: An AP, portable, upright chest radiograph is compared obtained. No prior studies are available for comparison at the time of dictation. The heart is enlarged. There is pulmonary vascular congestion. There is bibasilar scarring/atelectasis. No airspace consolidation or large pleural effusion is identified. No pneumothorax is seen. The skeletal structures are osteopenic. The bony thorax is grossly intact. IMPRESSION: Cardiomegaly with pulmonary vascular congestion. ACT 112: Negative or not required by law. Electronically signed by: Eduar Landaverde M.D. 03/02/2023 7:22 AM Tibia/Fibula X-Ray 03/02/23 03:04 LEFT TIBIA AND FIBULA 2 VIEWS CLINICAL HISTORY: Infection. FINDINGS: AP and lateral views of the left tibia and fibula are obtained. No prior studies are available for comparison at the time of dictation. The skeletal structures appear osteopenic. There is no radiographic evidence of left tibial or fibular fracture. No bony erosion or periostitis is seen. The knee and ankle joints are grossly maintained. Soft tissue edema is present throughout the left leg. No radiodense foreign body or soft tissue gas is seen. There is a large plantar heel spur. IMPRESSION: Soft tissue edema with no acute bony abnormality identified. Electronically signed by: Eduar Landaverde M.D. 03/02/2023 6:54 AM Venous Doppler Study 03/02/23 03:04 ULTRASOUND LEFT LOWER EXTREMITY VENOUS CLINICAL HISTORY: Left leg swelling and erythema. COMPARISON STUDY: No priors. TECHNIQUE: Real-time, grayscale, and color Doppler sonography of the deep veins of the left lower extremity was performed from the inguinal crease to the calf. Compression and augmentation were utilized. FINDINGS: There is no sonographic evidence of deep venous thrombosis identified in the left lower extremity. The common femoral, superficial femoral, and popliteal veins are patent and normally compressible. The greater saphenous vein and the profunda femoris vein at the junction with the common femoral vein are clear. The visualized calf veins are patent. Soft tissue edema is noted in the left leg. Prominent left groin nodes are likely reactive. IMPRESSION: There is no sonographic evidence of deep venous thrombosis identified in the left lower extremity. ACT 112: Negative or not required by law. Electronically signed by: Eduar Landaverde M.D. 03/02/2023 6:41 AM
[2023-03-03] MEDS ORDERED: cefTRIAXone SODIUM 2,000 MG in DEXTROSE 5 % MINI-B 50 ML IV SCH (13:15)
--- NOTE | 2023-03-03 13:31 | Pharmacy Report ---
Pharmacy PK ABX Note - Date of Service March 03, 2023 - Assessment and Plan Assessment 57 year old M receiving Vancomycin for treatment of LLE cellulitis. * Day #2 of antimicrobial therapy. * PMHx significant for incarceration. * HPI: Ongoing LLE cellulitis that has been ongoing for 4-5 days. Started on Augmentin and Clindamycin without improvement. Leg started weeping and developed chills so was brought to the hospital. * Labs/Vitals: Afebrile. Leukocytosis resolved. SCr 0.56 mg/dL, stable. Lactate normal. Procalcitonin 0.39 ng/mL. * Micro: MRSA nasal swab positive. Blood cultures with no growth to date. * Provider would like vancomycin extended to 7 days duration for now. Zosyn discontinued by ID yesterday. ID recommends 14 days total of treatment with transition to oral doxy. Plan Vancomyin * Current regimen: 1000 mg IV every 8 hours * Random level obtained 03/03/23 resulted as 6.4 mcg/mL. This is subtherapeutic. * Change to 1500 mg IV every 8 hours. Predicted AUC at steady state: 534 mg/L.hr * 1000 mg dose at 1200 was already hung so will give a supplemental dose of 500 mg after that bag is done. * Repeat random level ordered for: 03/05/23 Pharmacy will continue to follow and will adjust dose/frequency as necessary. Thank you. Pharmacy has transitioned to AUC monitoring for vancomycin. AUC/DESHAWN is the preferred PK/PD target and is associated with decreased risk of nephrotoxicity compared to traditional trough targets.
[2023-03-03] MEDS ORDERED: VANCOMYCIN HCL 500 MG in NSS 100mL IV ONE (14:30)
[2023-03-03] MEDS: VANCOMYCIN HCL 1,500 MG in SODIUM CHLORIDE 0.9% 500 ML IV SCH (20:59)
[2023-03-03] MEDS: CYCLOBENZAPRINE HCL 5 MG TAB PO PRN (20:59)
[2023-03-04] MEDS: VANCOMYCIN HCL 1,500 MG in SODIUM CHLORIDE 0.9% 500 ML IV SCH ×3 (03:45→20:50)
[2023-03-04] MEDS: LEVOTHYROXINE SODIUM 125 MCG TABLET PO SCH (05:55)
[2023-03-04 06:02] LABS: Basophils # (auto) 0.05 K/uL (0.00-0.20); Basophils % (auto) 0.5 %; Eosinophils # (auto) 0.36 K/uL (0.00-0.50); Eosinophils % (auto) 3.9 %; Hemoglobin 12.7 g/dl (14.0-18.0); Immature Granulocytes # (auto) 0.25 K/uL (0.01-0.20); Immature Granulocytes % (auto) 2.7 %; Lymphocytes # (auto) 2.49 K/uL (1.20-3.40); Lymphocytes % (auto) 26.7 %; Mean Corpuscular Hemoglobin 31.4 pg (25.0-34.0); Mean Corpuscular Hgb Conc 35.3 g/dL (32.0-36.0); Mean Corpuscular Volume 88.9 fL (80.0-100.0); Mean Platelet Volume 11.3 fL (9.4-12.4); Monocytes # (auto) 0.95 K/uL (0.11-0.59); Monocytes % (auto) 10.2 %; Neutrophils # (auto) 5.21 K/uL (1.40-6.50); Platelet Count 184 K/uL (130-400); RDW Coefficient of Variation 13.2 % (11.5-14.5); RDW Standard Deviation 43.6 fL (36.4-46.3); Red Blood Count 4.05 M/uL (4.70-6.10); White Blood Count 9.31 K/ul (4.8-10.8)
[2023-03-04 06:22] LABS: Albumin Globulin Ratio 0.8 (0.9-2); Albumin Level 2.8 gm/dl (3.4-5.0); Bilirubin,Total 0.5 mg/dl (0.2-1.0); Calcium 8.1 mg/dl (8.6-10.3); Creatinine Clr Calc Pharmacy 188.6 ml/min; Est GFR (African American) 132.1 ml/min; Globulin 3.3 gm/dl (2.5-4.0); Magnesium 1.8 mg/dl (1.7-2.4); Phosphorus 3.5 mg/dl (2.5-4.9); Potassium 3.9 mmol/L (3.5-5.1); Total Protein 6.1 gm/dl (6.0-8.3)
[2023-03-04] MEDS: ENOXAPARIN INJ 40 MG/0.4 ML SYR SQ SCH (07:37)
[2023-03-04] MEDS: PANTOprazole 40 MG TAB PO SCH (07:38)
--- NOTE | 2023-03-04 13:26 | Hospitalist Progress Note ---
Date of Service March 04, 2023 Assessment & Plan (1) Cellulitis of left leg: Plan: 57-year-old male with past med significant for hypothyroidism and GERD presents from [facility] with ongoing left leg cellulitis. Left leg cellulitis Patient presents with left leg cellulitis below the knee. Failed outpatient Augmentin and clindamycin. Lower extremity with blisters and significant swelling, erythema Venous duplex does not show any DVT Blood culture no growth in 48 hours Continue on vancomycin as recommended by infectious disease. Vancomycin trough to be between 15-20. Elevate left lower extremity Wound care nurse consulted History of hypothyroidism On Synthyroid Follow TSH GERD Prilosec DVT prophylaxis Lovenox Disposition Medical floor Full code Dispocontinues to hospitalize due to severe cellulitis requiring IV antibioti cs. Please note the above document was generated using voice recognition software. It may contain grammatical, syntax or spelling errors. Any formal questions or concerns about the content, text or information contained within the body of this dictation should be directly addressed to the provider for clarification Admission and Anticipated Discharge Date Admission Date: March 02, 2023 Subjective Patient seen and examined at bedside. Reports slight improvement in the leg cellulitis. Continues to report burning sensation. Afebrile and hemodynamic stable Review of Systems Review of Systems: All systems reviewed & are unremarkable except as noted in Subjective Physical Exam Physical Exam: General- Not in distress Head- atraumatic Eyes- PERRL. ENT- oropharynx clear Neck- supple, no JVD. Lungs- clear to auscultation , No wheezing or crackles. Heart- regular rhythm; no murmur, no gallop. Abdomen- normal bowel sounds, soft, nontender, no distension. Extremities- Left lower extremity erythematous around the seen with serous discharge. No visible wound present. Some scratch mckeon present. Neuro- alert, oriented x 3; PERRL, no facial palsy; no dysarthria; obeys commands, moves extremities. Results & Data Results & Data Vital Signs (Past 12 Hours) Vital Signs Temp Pulse Resp BP Pulse Ox O2 Del Method 03/04/23 07:57 36.8 C 70 16 113/76 97 Room Air Laboratory Results Laboratory Results WBC 9.31 K/ul (4.8-10.8) 03/04/23 05:31 RBC 4.05 M/uL (4.70-6.10) L 03/04/23 05:31 Hgb 12.7 g/dl (14.0-18.0) L 03/04/23 05:31 Hct 36.0 % (42.0-52.0) L 03/04/23 05:31 MCV 88.9 fL (80.0-100.0) 03/04/23 05:31 MCH 31.4 pg (25.0-34.0) 03/04/23 05:31 MCHC 35.3 g/dL (32.0-36.0) 03/04/23 05:31 RDW Std Deviation 43.6 fL (36.4-46.3) 03/04/23 05:31 RDW Coeff of [place] 13.2 % (11.5-14.5) 03/04/23 05:31 Plt Count 184 K/uL (130-400) 03/04/23 05:31 MPV 11.3 fL (9.4-12.4) 03/04/23 05:31 Immature Gran % (Auto) 2.7 % 03/04/23 05:31 Neut % (Auto) 56.0 % 03/04/23 05:31 Lymph % (Auto) 26.7 % 03/04/23 05:31 [place] % (Auto) 10.2 % 03/04/23 05:31 Eos % (Auto) 3.9 % 03/04/23 05:31 Baso % (Auto) 0.5 % 03/04/23 05:31 Neut # (Auto) 5.21 K/uL (1.40-6.50) 03/04/23 05:31 Lymph # (Auto) 2.49 K/uL (1.20-3.40) 03/04/23 05:31 [place] # (Auto) 0.95 K/uL (0.11-0.59) H 03/04/23 05:31 Eos # (Auto) 0.36 K/uL (0.00-0.50) 03/04/23 05:31 Baso # (Auto) 0.05 K/uL (0.00-0.20) 03/04/23 05:31 Immature Gran # (Auto) 0.25 K/uL (0.01-0.20) H 03/04/23 05:31 ESR 59 mm/hr (0-20) H 03/02/23 03:17 Sodium 138 mmol/L (136-145) 03/04/23 05:31 Potassium 3.9 mmol/L (3.5-5.1) 03/04/23 05:31 Chloride 107 mmol/L (98-107) 03/04/23 05:31 Carbon Dioxide 26 mmol/L (21-32) 03/04/23 05:31 Anion Gap 5 (3-11) 03/04/23 05:31 BUN 8 mg/dl (6-23) 03/04/23 05:31 Creatinine 0.57 mg/dl (0.6-1.4) L 03/04/23 05:31 Est Cr Clr Drug Dosing 188.6 ml/min 03/04/23 05:31 Est GFR ( Amer) 132.1 ml/min 03/04/23 05:31 Est GFR (Non-Af Amer) 114.0 ml/min 03/04/23 05:31 BUN/Creatinine Ratio 14.0 (10-20) 03/04/23 05:31 Glucose 107 mg/dl (70-99(Fasting)) H 03/04/23 05:31 Lactate 1.0 mmol/L (0.4-2.0) 03/02/23 03:17 Calcium 8.1 mg/dl (8.6-10.3) L 03/04/23 05:31 Ionized Calcium 1.09 mmol/L (1.12-1.32) L 03/04/23 05:31 Phosphorus 3.5 mg/dl (2.5-4.9) D 03/04/23 05:31 Magnesium 1.8 mg/dl (1.7-2.4) 03/04/23 05:31 Total Bilirubin 0.5 mg/dl (0.2-1.0) 03/04/23 05:31 Direct Bilirubin 0.2 mg/dl (0-0.2) 03/02/23 03:17 AST 52 U/L (13-39) H 03/04/23 05:31 ALT 53 U/L (7-52) H 03/04/23 05:31 Alkaline Phosphatase 72 U/L (34-104) 03/04/23 05:31 Total Creatine Kinase 157 U/L (30-223) 03/02/23 03:17 C-Reactive Protein 9.22 mg/dl (0-0.5) H 03/02/23 03:17 Total Protein 6.1 gm/dl (6.0-8.3) 03/04/23 05:31 Albumin 2.8 gm/dl (3.4-5.0) L 03/04/23 05:31 Globulin 3.3 gm/dl (2.5-4.0) 03/04/23 05:31 Albumin/Globulin Ratio 0.8 (0.9-2) L 03/04/23 05:31 Procalcitonin 0.39 ng/ml (0-0.5) 03/02/23 03:17 TSH 0.804 uIu/ml (0.300-4.500) 03/02/23 07:01 Urine Color Dark Yellow 03/02/23 04:55 Urine Appearance Clear (Clear) 03/02/23 04:55 Urine pH 6.0 (4.5-7.5) 03/02/23 04:55 Ur Specific [place] 1.028 (1.000-1.030) 03/02/23 04:55 Urine Protein Negative (Negative) 03/02/23 04:55 Urine Glucose (UA) Negative (Negative) 03/02/23 04:55 Urine Ketones Negative (Negative) 03/02/23 04:55 Urine Blood Negative (Negative) 03/02/23 04:55 Urine Nitrite Negative (Negative) 03/02/23 04:55 Urine Bilirubin Negative (Negative) 03/02/23 04:55 Urine Urobilinogen Negative (Negative) 03/02/23 04:55 Ur Leukocyte Esterase Negative (Negative) 03/02/23 04:55 Nasal Screen MRSA (PCR) Positive (Negative) A 03/02/23 08:05 Random Vancomycin 6.4 mcg/ml (10-20) L 03/03/23 12:08 Impressions Chest X-Ray 03/02/23 03:04 SINGLE VIEW CHEST CLINICAL HISTORY: Sepsis. FINDINGS: An AP, portable, upright chest radiograph is compared obtained. No prior studies are available for comparison at the time of dictation. The heart is enlarged. There is pulmonary vascular congestion. There is bibasilar scarring/atelectasis. No airspace consolidation or large pleural effusion is identified. No pneumothorax is seen. The skeletal structures are osteopenic. The bony thorax is grossly intact. IMPRESSION: Cardiomegaly with pulmonary vascular congestion. ACT 112: Negative or not required by law. Electronically signed by: Eduar Landaverde M.D. 03/02/2023 7:22 AM Tibia/Fibula X-Ray 03/02/23 03:04 LEFT TIBIA AND FIBULA 2 VIEWS CLINICAL HISTORY: Infection. FINDINGS: AP and lateral views of the left tibia and fibula are obtained. No prior studies are available for comparison at the time of dictation. The skeletal structures appear osteopenic. There is no radiographic evidence of left tibial or fibular fracture. No bony erosion or periostitis is seen. The knee and ankle joints are grossly maintained. Soft tissue edema is present throughout the left leg. No radiodense foreign body or soft tissue gas is seen. There is a large plantar heel spur. IMPRESSION: Soft tissue edema with no acute bony abnormality identified. Electronically signed by: Eduar Landaverde M.D. 03/02/2023 6:54 AM Venous Doppler Study 03/02/23 03:04 ULTRASOUND LEFT LOWER EXTREMITY VENOUS CLINICAL HISTORY: Left leg swelling and erythema. COMPARISON STUDY: No priors. TECHNIQUE: Real-time, grayscale, and color Doppler sonography of the deep veins of the left lower extremity was performed from the inguinal crease to the calf. Compression and augmentation were utilized. FINDINGS: There is no sonographic evidence of deep venous thrombosis identified in the left lower extremity. The common femoral, superficial femoral, and popliteal veins are patent and normally compressible. The greater saphenous vein and the profunda femoris vein at the junction with the common femoral vein are clear. The visualized calf veins are patent. Soft tissue edema is noted in the left leg. Prominent left groin nodes are likely reactive. IMPRESSION: There is no sonographic evidence of deep venous thrombosis identified in the left lower extremity. ACT 112: Negative or not required by law. Electronically signed by: Eduar Landaverde M.D. 03/02/2023 6:41 AM
[2023-03-04] MEDS: CYCLOBENZAPRINE HCL 5 MG TAB PO PRN (20:53)
[2023-03-05] MEDS ORDERED: VANCOMYCIN LEVEL ONE (03:30)
[2023-03-05 04:01] LABS: Basophils # (auto) 0.07 K/uL (0.00-0.20); Basophils % (auto) 0.7 %; Eosinophils # (auto) 0.49 K/uL (0.00-0.50); Eosinophils % (auto) 4.9 %; Hematocrit (blood only) 36.3 % (42.0-52.0); Hemoglobin 12.2 g/dl (14.0-18.0); Immature Granulocytes # (auto) 0.22 K/uL (0.01-0.20); Immature Granulocytes % (auto) 2.2 %; Lymphocytes % (auto) 25.3 %; Mean Corpuscular Hemoglobin 30.7 pg (25.0-34.0); Mean Corpuscular Hgb Conc 33.6 g/dL (32.0-36.0); Mean Corpuscular Volume 91.2 fL (80.0-100.0); Mean Platelet Volume 11.2 fL (9.4-12.4); Monocytes # (auto) 0.89 K/uL (0.11-0.59); Neutrophils # (auto) 5.73 K/uL (1.40-6.50); Neutrophils % (auto) 57.9 %; Platelet Count 194 K/uL (130-400); RDW Coefficient of Variation 13.3 % (11.5-14.5); RDW Standard Deviation 44.3 fL (36.4-46.3); Red Blood Count 3.98 M/uL (4.70-6.10)
[2023-03-05 04:15] LABS: Albumin Globulin Ratio 0.8 (0.9-2); Albumin Level 2.7 gm/dl (3.4-5.0); BUN Creatinine Ratio 14.3 (10-20); Bilirubin,Total 0.5 mg/dl (0.2-1.0); Calcium 8.1 mg/dl (8.6-10.3); Creatinine Clr Calc Pharmacy 170.6 ml/min; Est GFR (African American) 126.8 ml/min; Est GFR (Non-African American) 109.4 ml/min; Globulin 3.5 gm/dl (2.5-4.0); Magnesium 1.8 mg/dl (1.7-2.4); Phosphorus 3.7 mg/dl (2.5-4.9); Potassium 4.6 mmol/L (3.5-5.1); Total Protein 6.2 gm/dl (6.0-8.3)
[2023-03-05] MEDS: VANCOMYCIN HCL 1,500 MG in SODIUM CHLORIDE 0.9% 500 ML IV SCH ×3 (05:15→20:30)
[2023-03-05] MEDS: LEVOTHYROXINE SODIUM 125 MCG TABLET PO SCH (05:17)
[2023-03-05] MEDS: ENOXAPARIN INJ 40 MG/0.4 ML SYR SQ SCH (07:37)
[2023-03-05] MEDS: PANTOprazole 40 MG TAB PO SCH (07:38)
--- NOTE | 2023-03-05 12:40 | Hospitalist Progress Note ---
Date of Service March 05, 2023 Assessment & Plan (1) Cellulitis of left leg: Plan: 57-year-old male with past med significant for hypothyroidism and GERD presents from shelter with ongoing left leg cellulitis. Left leg cellulitis Patient presents with left leg cellulitis below the knee. Failed outpatient Augmentin and clindamycin. Lower extremity with blisters and significant swelling, erythema Venous duplex does not show any DVT Blood culture no growth in 48 hours Continue on vancomycin as recommended by infectious disease. Vancomycin trough to be between 15-20. Elevate left lower extremity Wound care nurse consulted for the wound History of hypothyroidism On Synthyroid Follow TSH GERD Prilosec DVT prophylaxis Lovenox Disposition Medical floor Full code Dispocontinues to hospitalize due to severe cellulitis requiring IV antibiotics. Please note the above document was generated using voice recognition software. It may contain grammatical, syntax or spelling errors. Any formal questions or concerns about the content, text or information contained within the body of this dictation should be directly addressed to the provider for clarification Admission and Anticipated Discharge Date Admission Date: March 02, 2023 Subjective Patient seen and examined at bedside. He is sitting up on the bed comfortably. Continues to have increased drainage from his wound. Review of Systems Review of Systems: All systems reviewed & are unremarkable except as noted in Subjective Physical Exam Physical Exam: General- Not in distress Head- atraumatic Eyes- PERRL. ENT- oropharynx clear Neck- supple, no JVD. Lungs- clear to auscultation , No wheezing or crackles. Heart- regular rhythm; no murmur, no gallop. Abdomen- normal bowel sounds, soft, nontender, no distension. Extremities- Left lower extremity erythematous around the seen with serous discharge. No visible wound present. Some scratch mckeon present. Neuro- alert, oriented x 3; PERRL, no facial palsy; no dysarthria; obeys commands, moves extremities. Results & Data Results & Data Vital Signs (Past 12 Hours) Vital Signs Temp Pulse Resp BP Pulse Ox O2 Del Method 03/05/23 09:47 Room Air 03/05/23 07:22 36.7 C 81 18 125/78 96 Room Air Laboratory Results Laboratory Results WBC 9.90 K/ul (4.8-10.8) 03/05/23 03:35 RBC 3.98 M/uL (4.70-6.10) L 03/05/23 03:35 Hgb 12.2 g/dl (14.0-18.0) L 03/05/23 03:35 Hct 36.3 % (42.0-52.0) L 03/05/23 03:35 MCV 91.2 fL (80.0-100.0) 03/05/23 03:35 MCH 30.7 pg (25.0-34.0) 03/05/23 03:35 MCHC 33.6 g/dL (32.0-36.0) 03/05/23 03:35 RDW Std Deviation 44.3 fL (36.4-46.3) 03/05/23 03:35 RDW Coeff of [place] 13.3 % (11.5-14.5) 03/05/23 03:35 Plt Count 194 K/uL (130-400) 03/05/23 03:35 MPV 11.2 fL (9.4-12.4) 03/05/23 03:35 Immature Gran % (Auto) 2.2 % 03/05/23 03:35 Neut % (Auto) 57.9 % 03/05/23 03:35 Lymph % (Auto) 25.3 % 03/05/23 03:35 [place] % (Auto) 9.0 % 03/05/23 03:35 Eos % (Auto) 4.9 % 03/05/23 03:35 Baso % (Auto) 0.7 % 03/05/23 03:35 Neut # (Auto) 5.73 K/uL (1.40-6.50) 03/05/23 03:35 Lymph # (Auto) 2.50 K/uL (1.20-3.40) 03/05/23 03:35 [place] # (Auto) 0.89 K/uL (0.11-0.59) H 03/05/23 03:35 Eos # (Auto) 0.49 K/uL (0.00-0.50) 03/05/23 03:35 Baso # (Auto) 0.07 K/uL (0.00-0.20) 03/05/23 03:35 Immature Gran # (Auto) 0.22 K/uL (0.01-0.20) H 03/05/23 03:35 ESR 59 mm/hr (0-20) H 03/02/23 03:17 Sodium 137 mmol/L (136-145) 03/05/23 03:35 Potassium 4.6 mmol/L (3.5-5.1) 03/05/23 03:35 Chloride 107 mmol/L (98-107) 03/05/23 03:35 Carbon Dioxide 27 mmol/L (21-32) 03/05/23 03:35 Anion Gap 3 (3-11) 03/05/23 03:35 BUN 9 mg/dl (6-23) 03/05/23 03:35 Creatinine 0.63 mg/dl (0.6-1.4) 03/05/23 03:35 Est Cr Clr Drug Dosing 170.6 ml/min 03/05/23 03:35 Est GFR ( Amer) 126.8 ml/min 03/05/23 03:35 Est GFR (Non-Af Amer) 109.4 ml/min 03/05/23 03:35 BUN/Creatinine Ratio 14.3 (10-20) 03/05/23 03:35 Glucose 108 mg/dl (70-99(Fasting)) H 03/05/23 03:35 Lactate 1.0 mmol/L (0.4-2.0) 03/02/23 03:17 Calcium 8.1 mg/dl (8.6-10.3) L 03/05/23 03:35 Ionized Calcium 1.12 mmol/L (1.12-1.32) 03/05/23 03:35 Phosphorus 3.7 mg/dl (2.5-4.9) 03/05/23 03:35 Magnesium 1.8 mg/dl (1.7-2.4) 03/05/23 03:35 Total Bilirubin 0.5 mg/dl (0.2-1.0) 03/05/23 03:35 Direct Bilirubin 0.2 mg/dl (0-0.2) 03/02/23 03:17 AST 54 U/L (13-39) H 03/05/23 03:35 ALT 60 U/L (7-52) H 03/05/23 03:35 Alkaline Phosphatase 71 U/L (34-104) 03/05/23 03:35 Total Creatine Kinase 157 U/L (30-223) 03/02/23 03:17 C-Reactive Protein 9.22 mg/dl (0-0.5) H 03/02/23 03:17 Total Protein 6.2 gm/dl (6.0-8.3) 03/05/23 03:35 Albumin 2.7 gm/dl (3.4-5.0) L 03/05/23 03:35 Globulin 3.5 gm/dl (2.5-4.0) 03/05/23 03:35 Albumin/Globulin Ratio 0.8 (0.9-2) L 03/05/23 03:35 Procalcitonin 0.39 ng/ml (0-0.5) 03/02/23 03:17 TSH 0.804 uIu/ml (0.300-4.500) 03/02/23 07:01 Urine Color Dark Yellow 03/02/23 04:55 Urine Appearance Clear (Clear) 03/02/23 04:55 Urine pH 6.0 (4.5-7.5) 03/02/23 04:55 Ur Specific [place] 1.028 (1.000-1.030) 03/02/23 04:55 Urine Protein Negative (Negative) 03/02/23 04:55 Urine Glucose (UA) Negative (Negative) 03/02/23 04:55 Urine Ketones Negative (Negative) 03/02/23 04:55 Urine Blood Negative (Negative) 03/02/23 04:55 Urine Nitrite Negative (Negative) 03/02/23 04:55 Urine Bilirubin Negative (Negative) 03/02/23 04:55 Urine Urobilinogen Negative (Negative) 03/02/23 04:55 Ur Leukocyte Esterase Negative (Negative) 03/02/23 04:55 Nasal Screen MRSA (PCR) Positive (Negative) A 03/02/23 08:05 Random Vancomycin 12.9 mcg/ml (10-20) 03/05/23 03:35 Impressions Chest X-Ray 03/02/23 03:04 SINGLE VIEW CHEST CLINICAL HISTORY: Sepsis. FINDINGS: An AP, portable, upright chest radiograph is compared obtained. No prior studies are available for comparison at the time of dictation. The heart is enlarged. There is pulmonary vascular congestion. There is bibasilar scarring/atelectasis. No airspace consolidation or large pleural effusion is identified. No pneumothorax is seen. The skeletal structures are osteopenic. The bony thorax is grossly intact. IMPRESSION: Cardiomegaly with pulmonary vascular congestion. ACT 112: Negative or not required by law. Electronically signed by: Eduar Landaverde M.D. 03/02/2023 7:22 AM Tibia/Fibula X-Ray 03/02/23 03:04 LEFT TIBIA AND FIBULA 2 VIEWS CLINICAL HISTORY: Infection. FINDINGS: AP and lateral views of the left tibia and fibula are obtained. No prior studies are available for comparison at the time of dictation. The skeletal structures appear osteopenic. There is no radiographic evidence of left tibial or fibular fracture. No bony erosion or periostitis is seen. The knee and ankle joints are grossly maintained. Soft tissue edema is present throughout the left leg. No radiodense foreign body or soft tissue gas is seen. There is a large plantar heel spur. IMPRESSION: Soft tissue edema with no acute bony abnormality identified. Electronically signed by: Eduar Landaverde M.D. 03/02/2023 6:54 AM Venous Doppler Study 03/02/23 03:04 ULTRASOUND LEFT LOWER EXTREMITY VENOUS CLINICAL HISTORY: Left leg swelling and erythema. COMPARISON STUDY: No priors. TECHNIQUE: Real-time, grayscale, and color Doppler sonography of the deep veins of the left lower extremity was performed from the inguinal crease to the calf. Compression and augmentation were utilized. FINDINGS: There is no sonographic evidence of deep venous thrombosis identified in the left lower extremity. The common femoral, superficial femoral, and popliteal veins are patent and normally compressible. The greater saphenous vein and the profunda femoris vein at the junction with the common femoral vein are clear. The visualized calf veins are patent. Soft tissue edema is noted in the left leg. Prominent left groin nodes are likely reactive. IMPRESSION: There is no sonographic evidence of deep venous thrombosis identified in the left lower extremity. ACT 112: Negative or not required by law. Electronically signed by: Eduar Landaverde M.D. 03/02/2023 6:41 AM
--- NOTE | 2023-03-05 13:39 | Pharmacy Report ---
Pharmacy PK ABX Note - Date of Service March 05, 2023 - Assessment and Plan Assessment 03/05: Random level this morning 12.9, predicts achievement of target AUC/DESHAWN 400-600 mg/L.hr. will continue current dosing. 57 year old M receiving Vancomycin for treatment of LLE cellulitis. * Day #2 of antimicrobial therapy. * PMHx significant for incarceration. * HPI: Ongoing LLE cellulitis that has been ongoing for 4-5 days. Started on Augmentin and Clindamycin without improvement. Leg started weeping and developed chills so was brought to the hospital. * Labs/Vitals: Afebrile. Leukocytosis resolved. SCr 0.56 mg/dL, stable. Lactate normal. Procalcitonin 0.39 ng/mL. * Micro: MRSA nasal swab positive. Blood cultures with no growth to date. * Provider would like vancomycin extended to 7 days duration for now. Zosyn discontinued by ID yesterday. ID recommends 14 days total of treatment with transition to oral doxy. Plan Vancomyin * Current regimen: 1500 mg IV every 8 hours * Random level obtained 03/05/23 resulted as 12.9 mcg/mL. * Continue 1500 mg IV every 8 hours. * Repeat random level in 1-2 days Pharmacy will continue to follow and will adjust dose/frequency as necessary. Thank you. Pharmacy has transitioned to AUC monitoring for vancomycin. AUC/DESHAWN is the preferred PK/PD target and is associated with decreased risk of nephrotoxicity compared to traditional trough targets.
[2023-03-06] MEDS: VANCOMYCIN HCL 1,500 MG in SODIUM CHLORIDE 0.9% 500 ML IV SCH ×3 (04:55→21:08)
[2023-03-06] MEDS: LEVOTHYROXINE SODIUM 125 MCG TABLET PO SCH (05:54)
[2023-03-06] MEDS: PANTOprazole 40 MG TAB PO SCH (07:38)
[2023-03-06] MEDS: ENOXAPARIN INJ 40 MG/0.4 ML SYR SQ SCH (07:39)
--- NOTE | 2023-03-06 13:43 | Hospitalist Progress Note ---
Date of Service March 06, 2023 Assessment & Plan (1) Cellulitis of left leg: Plan: 57-year-old male with past med significant for hypothyroidism and GERD presents from [facility] with ongoing left leg cellulitis. Left leg cellulitis Patient presents with left leg cellulitis below the knee. Failed outpatient Augmentin and clindamycin. Lower extremity with blisters and significant swelling, erythema Venous duplex does not show any DVT Blood culture no growth in 48 hours Continue on vancomycin as recommended by infectious disease. Vancomycin trough to be between 15-20. Elevate left lower extremity Wound care nurse consulted for the wound History of hypothyroidism On Synthyroid Follow TSH GERD Prilosec DVT prophylaxis Lovenox Disposition Medical floor Full code Dispocontinues to hospitalize due to severe cellulitis requiring IV antibiotics. Please note the above document was generated using voice recognition software. It may contain grammatical, syntax or spelling errors. Any formal questions or concerns about the content, text or information contained within the body of this dictation should be directly addressed to the provider for clarification Admission and Anticipated Discharge Date Admission Date: March 02, 2023 Subjective Continues to have cellulitis and redness on his left lower extremity. Afebrile and normotensive overnight Review of Systems Review of Systems: All systems reviewed & are unremarkable except as noted in Subjective Physical Exam Physical Exam: General- Not in distress Head- atraumatic Eyes- PERRL. ENT- oropharynx clear Neck- supple, no JVD. Lungs- clear to auscultation , No wheezing or crackles. Heart- regular rhythm; no murmur, no gallop. Abdomen- normal bowel sounds, soft, nontender, no distension. Extremities- Left lower extremity erythematous around the seen with serous discharge. No visible wound present. Some scratch mckeon present. Neuro- alert, oriented x 3; PERRL, no facial palsy; no dysarthria; obeys commands, moves extremities. Results & Data Results & Data Vital Signs (Past 12 Hours) Vital Signs Temp Pulse Resp BP Pulse Ox O2 Del Method 03/06/23 08:16 36.7 C 79 16 132/83 96 Room Air 03/06/23 08:15 Room Air Laboratory Results Laboratory Results WBC 9.90 K/ul (4.8-10.8) 03/05/23 03:35 RBC 3.98 M/uL (4.70-6.10) L 03/05/23 03:35 Hgb 12.2 g/dl (14.0-18.0) L 03/05/23 03:35 Hct 36.3 % (42.0-52.0) L 03/05/23 03:35 MCV 91.2 fL (80.0-100.0) 03/05/23 03:35 MCH 30.7 pg (25.0-34.0) 03/05/23 03:35 MCHC 33.6 g/dL (32.0-36.0) 03/05/23 03:35 RDW Std Deviation 44.3 fL (36.4-46.3) 03/05/23 03:35 RDW Coeff of [place] 13.3 % (11.5-14.5) 03/05/23 03:35 Plt Count 194 K/uL (130-400) 03/05/23 03:35 MPV 11.2 fL (9.4-12.4) 03/05/23 03:35 Immature Gran % (Auto) 2.2 % 03/05/23 03:35 Neut % (Auto) 57.9 % 03/05/23 03:35 Lymph % (Auto) 25.3 % 03/05/23 03:35 [place] % (Auto) 9.0 % 03/05/23 03:35 Eos % (Auto) 4.9 % 03/05/23 03:35 Baso % (Auto) 0.7 % 03/05/23 03:35 Neut # (Auto) 5.73 K/uL (1.40-6.50) 03/05/23 03:35 Lymph # (Auto) 2.50 K/uL (1.20-3.40) 03/05/23 03:35 [place] # (Auto) 0.89 K/uL (0.11-0.59) H 03/05/23 03:35 Eos # (Auto) 0.49 K/uL (0.00-0.50) 03/05/23 03:35 Baso # (Auto) 0.07 K/uL (0.00-0.20) 03/05/23 03:35 Immature Gran # (Auto) 0.22 K/uL (0.01-0.20) H 03/05/23 03:35 ESR 59 mm/hr (0-20) H 03/02/23 03:17 Sodium 137 mmol/L (136-145) 03/05/23 03:35 Potassium 4.6 mmol/L (3.5-5.1) 03/05/23 03:35 Chloride 107 mmol/L (98-107) 03/05/23 03:35 Carbon Dioxide 27 mmol/L (21-32) 03/05/23 03:35 Anion Gap 3 (3-11) 03/05/23 03:35 BUN 9 mg/dl (6-23) 03/05/23 03:35 Creatinine 0.63 mg/dl (0.6-1.4) 03/05/23 03:35 Est Cr Clr Drug Dosing 170.6 ml/min 03/05/23 03:35 Est GFR ( Amer) 126.8 ml/min 03/05/23 03:35 Est GFR (Non-Af Amer) 109.4 ml/min 03/05/23 03:35 BUN/Creatinine Ratio 14.3 (10-20) 03/05/23 03:35 Glucose 108 mg/dl (70-99(Fasting)) H 03/05/23 03:35 Lactate 1.0 mmol/L (0.4-2.0) 03/02/23 03:17 Calcium 8.1 mg/dl (8.6-10.3) L 03/05/23 03:35 Ionized Calcium 1.12 mmol/L (1.12-1.32) 03/05/23 03:35 Phosphorus 3.7 mg/dl (2.5-4.9) 03/05/23 03:35 Magnesium 1.8 mg/dl (1.7-2.4) 03/05/23 03:35 Total Bilirubin 0.5 mg/dl (0.2-1.0) 03/05/23 03:35 Direct Bilirubin 0.2 mg/dl (0-0.2) 03/02/23 03:17 AST 54 U/L (13-39) H 03/05/23 03:35 ALT 60 U/L (7-52) H 03/05/23 03:35 Alkaline Phosphatase 71 U/L (34-104) 03/05/23 03:35 Total Creatine Kinase 157 U/L (30-223) 03/02/23 03:17 C-Reactive Protein 9.22 mg/dl (0-0.5) H 03/02/23 03:17 Total Protein 6.2 gm/dl (6.0-8.3) 03/05/23 03:35 Albumin 2.7 gm/dl (3.4-5.0) L 03/05/23 03:35 Globulin 3.5 gm/dl (2.5-4.0) 03/05/23 03:35 Albumin/Globulin Ratio 0.8 (0.9-2) L 03/05/23 03:35 Procalcitonin 0.39 ng/ml (0-0.5) 03/02/23 03:17 TSH 0.804 uIu/ml (0.300-4.500) 03/02/23 07:01 Urine Color Dark Yellow 03/02/23 04:55 Urine Appearance Clear (Clear) 03/02/23 04:55 Urine pH 6.0 (4.5-7.5) 03/02/23 04:55 Ur Specific [place] 1.028 (1.000-1.030) 03/02/23 04:55 Urine Protein Negative (Negative) 03/02/23 04:55 Urine Glucose (UA) Negative (Negative) 03/02/23 04:55 Urine Ketones Negative (Negative) 03/02/23 04:55 Urine Blood Negative (Negative) 03/02/23 04:55 Urine Nitrite Negative (Negative) 03/02/23 04:55 Urine Bilirubin Negative (Negative) 03/02/23 04:55 Urine Urobilinogen Negative (Negative) 03/02/23 04:55 Ur Leukocyte Esterase Negative (Negative) 03/02/23 04:55 Nasal Screen MRSA (PCR) Positive (Negative) A 03/02/23 08:05 Random Vancomycin 12.9 mcg/ml (10-20) 03/05/23 03:35 Impressions Chest X-Ray 03/02/23 03:04 SINGLE VIEW CHEST CLINICAL HISTORY: Sepsis. FINDINGS: An AP, portable, upright chest radiograph is compared obtained. No prior studies are available for comparison at the time of dictation. The heart is enlarged. There is pulmonary vascular congestion. There is bibasilar scarring/atelectasis. No airspace consolidation or large pleural effusion is identified. No pneumothorax is seen. The skeletal structures are osteopenic. The bony thorax is grossly intact. IMPRESSION: Cardiomegaly with pulmonary vascular congestion. ACT 112: Negative or not required by law. Electronically signed by: Eduar Landaverde M.D. 03/02/2023 7:22 AM Tibia/Fibula X-Ray 03/02/23 03:04 LEFT TIBIA AND FIBULA 2 VIEWS CLINICAL HISTORY: Infection. FINDINGS: AP and lateral views of the left tibia and fibula are obtained. No prior studies are available for comparison at the time of dictation. The skeletal structures appear osteopenic. There is no radiographic evidence of left tibial or fibular fracture. No bony erosion or periostitis is seen. The knee and ankle joints are grossly maintained. Soft tissue edema is present throughout the left leg. No radiodense foreign body or soft tissue gas is seen. There is a large plantar heel spur. IMPRESSION: Soft tissue edema with no acute bony abnormality identified. Electronically signed by: Eduar Landaverde M.D. 03/02/2023 6:54 AM Venous Doppler Study 03/02/23 03:04 ULTRASOUND LEFT LOWER EXTREMITY VENOUS CLINICAL HISTORY: Left leg swelling and erythema. COMPARISON STUDY: No priors. TECHNIQUE: Real-time, grayscale, and color Doppler sonography of the deep veins of the left lower extremity was performed from the inguinal crease to the calf. Compression and augmentation were utilized. FINDINGS: There is no sonographic evidence of deep venous thrombosis identified in the left lower extremity. The common femoral, superficial femoral, and popliteal veins are patent and normally compressible. The greater saphenous vein and the profunda femoris vein at the junction with the common femoral vein are clear. The visualized calf veins are patent. Soft tissue edema is noted in the left leg. Prominent left groin nodes are likely reactive. IMPRESSION: There is no sonographic evidence of deep venous thrombosis identified in the left lower extremity. ACT 112: Negative or not required by law. Electronically signed by: Eduar Landaverde M.D. 03/02/2023 6:41 AM
[2023-03-07] MEDS: VANCOMYCIN HCL 1,500 MG in SODIUM CHLORIDE 0.9% 500 ML IV SCH ×3 (04:21→21:28)
[2023-03-07] MEDS: LEVOTHYROXINE SODIUM 125 MCG TABLET PO SCH (06:07)
[2023-03-07 06:09] LABS: BUN Creatinine Ratio 20.2 (10-20); C Reactive Protein 2.19 mg/dl (0-0.5); Calcium 7.7 mg/dl (8.6-10.3); Est GFR (African American) 112.7 ml/min; Est GFR (Non-African American) 97.2 ml/min; Potassium 4.6 mmol/L (3.5-5.1)
[2023-03-07] MEDS: ENOXAPARIN INJ 40 MG/0.4 ML SYR SQ SCH (07:40)
[2023-03-07] MEDS: PANTOprazole 40 MG TAB PO SCH (07:41)
--- NOTE | 2023-03-07 15:00 | Hospitalist Progress Note ---
Date of Service March 07, 2023 Assessment & Plan (1) Cellulitis of left leg: Plan: 57-year-old male with past med significant for hypothyroidism and GERD presents from care home with ongoing left leg cellulitis. Left leg cellulitis Patient presents with left leg cellulitis below the knee. Failed outpatient Augmentin and clindamycin. Lower extremity with blisters and significant swelling, erythema Venous duplex does not show any DVT Blood culture no growth in 48 hours Continue on vancomycin as recommended by infectious disease. Vancomycin trough to be between 15-20. Elevate left lower extremity Wound care nurse consulted for the wound D/C tomorrow on oral doxycycline for additional 7 days and daily dressing changes History of hypothyroidism On Synthyroid Follow TSH GERD Prilosec DVT prophylaxis Lovenox Disposition Medical floor Full code Dispod/c back to care home tomorrow Please note the above document was generated using voice recognition software. It may contain grammatical, syntax or spelling errors. Any formal questions or concerns about the content, text or information contained within the body of this dictation should be directly addressed to the provider for clarification Pt was seen and examined in collaboration with Dr. Taylor, please see addendum Admission and Anticipated Discharge Date Admission Date: March 02, 2023 Supervising Physician Co-Signing Physician Notes Patient seen and examined independently. Discussed with above provider. CRP down trended. Clinically, patient is doing better. Continue IV antibiotics for today. Potential discharge tomorrow. Subjective Pt was seen and examined in room 320-1. F/U cellulitis. He states leg is feeling better. Continues to have pain. Redness improving. Denies f/c/s, chest pain, sob, n/v/d. Review of Systems Review of Systems: All systems reviewed & are unremarkable except as noted in HPI & below Physical Exam Physical Exam: Gen: WD/WN, M, obese, NAD, A&O x3 HEENT: Normocephalic, atraumatic, conjunctivae moist, sclerae anicteric, mucous membranes moist. Lung: Clear to Auscultation bilaterally, no wheezes/rales/rhonchi Heart: Regular rate, regular rhythm, no murmurs, rubs, or gallops Abdomen: Soft, NT, ND +BS x 4 Extremities: b/l lower ext edema L > R ,LLE erythema but improving, R medial ulceration noted, viewed with nurse at bedside Skin: Warm, no rash, negative turgor. Results & Data Results & Data Vital Signs (Past 12 Hours) Vital Signs Temp Pulse Resp BP Pulse Ox O2 Del Method 03/07/23 08:24 Room Air 03/07/23 07:31 36.8 C 78 16 119/76 94 Room Air Medications Administered Current Inpatient Medications Acetaminophen (Acetaminophen 325 Mg Tab) 650 mg PO Q4H PRN PRN Reason: pain/fever Stop: 04/01/23 05:53 Last Admin: 03/02/23 18:29 Dose: 650 mg Cyclobenzaprine HCl (Cyclobenzaprine Hcl 5 Mg Tab) 5 mg PO DAILY PRN PRN Reason: Muscle Spasm Stop: 04/01/23 20:21 Last Admin: 03/04/23 20:53 Dose: 5 mg Enoxaparin Sodium (Enoxaparin Inj 40 Mg/0.4 Ml Syr) 40 mg SQ Q24H [facility] Stop: 04/01/23 07:59 Last Admin: 03/07/23 07:40 Dose: 40 mg Hydromorphone HCl (Hydromorphone Inj 0.5 Mg/0.5 Ml Syr) 0.5 mg IV Q6H PRN PRN Reason: Severe Pain (Scale 7, 8, 9,10) Stop: 03/16/23 05:53 Vancomycin HCl 1,500 mg/ (Sodium Chloride) 530 mls @ 200 mls/hr IV Q8H [facility] Stop: 03/10/23 19:59 Last Infusion: 03/07/23 14:37 Dose: Infused Levothyroxine Sodium (Levothyroxine Sodium 125 Mcg Tablet) 125 mcg PO DAILYBB [facility] Stop: 04/01/23 07:29 Last Admin: 03/07/23 06:07 Dose: 125 mcg Miscellaneous Information (Vancomycin Consult Active) 1 each N/A UD PRN PRN Reason: Consult Stop: 04/01/23 03:03 Pantoprazole Sodium (Pantoprazole 40 Mg Tab) 40 mg PO DAILY [facility] Stop: 04/01/23 08:59 Last Admin: 03/07/23 07:41 Dose: 40 mg Polyethylene Glycol (Polyethylene (Miralax) 17 Gm Pack) 17 gm PO DAILY PRN PRN Reason: Constipation Stop: 04/01/23 05:53
[2023-03-08] MEDS: VANCOMYCIN HCL 1,500 MG in SODIUM CHLORIDE 0.9% 500 ML IV SCH ×2 (05:19→14:22)
[2023-03-08] MEDS: LEVOTHYROXINE SODIUM 125 MCG TABLET PO SCH (05:42)
[2023-03-08] MEDS: ENOXAPARIN INJ 40 MG/0.4 ML SYR SQ SCH (07:57)
[2023-03-08 08:30] LABS: BUN Creatinine Ratio 20.5 (10-20); Calcium 7.9 mg/dl (8.6-10.3); Creatinine Clr Calc Pharmacy 147.2 ml/min; Est GFR (African American) 119.3 ml/min; Potassium 4.3 mmol/L (3.5-5.1)
[2023-03-08] MEDS: PANTOprazole 40 MG TAB PO SCH (10:40)
--- NOTE | 2023-03-08 10:59 | Discharge Summary ---
Discharge Summary Date of Service March 08, 2023 Notes For Next Care Provider He will need daily dressing changes. Wound directions as follows: Wash leg and pat dry, clean wound with saline, cover with Full sheets of Aquacel Ag, skinfold manager social responsibility (if available), Devika and Martha. Change every day and as needed for drainage. Do not allow wet dressings to remain in place. It is recommended [facility] by calling [phone] Pt had a positive nasal MRSA screen and contact precautions are recommended. Medication Changes From Visit Doxycycline 100 mg twice daily for additional 10 days. Florastor 250 mg daily for additional 10 days. Recommend Tylenol 650 mg as needed for pain. Admission HPI Per Admitting Provider 57-year-old male with past med significant for hypothyroidism and GERD presents with ongoing left leg cellulitis. Patient states the swelling and redness started about 4 to 5 days ago and initially was not that bad. He was having shaking chills. Chills made him stiff and sore all over. Seems he was treated with Augmentin and clindamycin and is not getting better and so he was brought to the hospital. left Lower part of the leg he is also weeping. Seems was treated with hydrochlorothiazide. Denies any headache. Says he has cataract in the right eye and vision is poor in that eye. No sore throat. No cough. No difficulty swallowing. Appetite is down. No chest pain. No shortness of breath. Some sicknessin stomach. Constipated last for 4 days. Urinating okay. Currently hemodynamically stable. Somewhat hard to hear Past medical history as mentioned above. Past surgical history. As per patient he had cardiac surgery at age 2. Does not know what Surgery was it. Social history. Used to smoke 12 cigarettes daily for 35 years until he was imprisoned last February. Last drink was last February. Used to smoke marijuana until he was imprisoned last February. Family history. Mother from aneurysm as per patient. Admission Exam Per Admitting Provider General- Not in distress Head- atraumatic Eyes- PERRL. ENT- oropharynx clear Neck- supple, no JVD. Lungs- clear to auscultation , No wheezing or crackles. Heart- regular rhythm; no murmur, no gallop. Abdomen- normal bowel sounds, soft, nontender, no distension. Extremities- Left lower extremity erythematous knee down and baird region and ankle swollen and drainage seen Neuro- alert, oriented x 3; PERRL, no facial palsy; no dysarthria; obeys commands, moves extremities. Principal Dx & Hospital Course #1 = Principal Diagnosis (1) Cellulitis of left le-year-old male with past med significant for hypothyroidism and GERD presents from long-term with ongoing left leg cellulitis. Left leg cellulitis Patient presents with left leg cellulitis below the knee. Failed outpatient Augmentin and clindamycin. Lower extremity with blisters and significant swelling, erythema Venous duplex does not show any DVT Blood culture no growth in 48 hours Treated with IV vancomycin as recommended by infectious disease. Will transition to oral doxy at discharge Elevate left lower extremity Daily wound care as prescribed D/C tomorrow on oral doxycycline for additional 10 days and daily dressing changes History of hypothyroidism On Synthyroid Follow TSH GERD Prilosec DVT prophylaxis Lovenox Disposition Medical floor Full code Dispod/c back to long-term today Please note the above document was generated using voice recognition software. It may contain grammatical, syntax or spelling errors. Any formal questions or concerns about the content, text or information contained within the body of this dictation should be directly addressed to the provider for clarification Pt was seen and examined in collaboration with Dr. Taylor, please see addendum Discharge Exam Gen: WD/WN, M, obese, NAD, A&O x3 HEENT: Normocephalic, atraumatic, conjunctivae moist, sclerae anicteric, mucous membranes moist. Lung: Clear to Auscultation bilaterally, no wheezes/rales/rhonchi Heart: Regular rate, regular rhythm, no murmurs, rubs, or gallops Abdomen: Soft, NT, ND +BS x 4 Extremities: b/l lower ext edema L > R ,LLE erythema but improving, L medial ulceration noted, viewed with nurse at bedside Skin: Warm, no rash, negative turgor. Updated Medication List Medication Instructions Recorded Confirmed Type Prilosec 20 mg PO DAILY 03/02/23 03/02/23 History levothyroxine 125 mcg tablet 125 mcg PO DAILY 03/02/23 03/02/23 History acetaminophen 325 mg tablet 650 mg PO Q4H PRN fever #14 tabs 03/08/23 Rx doxycycline monohydrate 100 mg 100 mg PO BID 10 days #20 caps 03/08/23 Rx capsule Hospital Stay Data Consultations 03/02/23 03:50 ED Decision to Admit Stat 03/02/23 09:00 Consult Infectious Diseases Routine Diagnostic Imagining Performed Chest X-Ray 03/02/23 03:04 SINGLE VIEW CHEST CLINICAL HISTORY: Sepsis. FINDINGS: An AP, portable, upright chest radiograph is compared obtained. No prior studies are available for comparison at the time of dictation. The heart is enlarged. There is pulmonary vascular congestion. There is bibasilar scarring/atelectasis. No airspace consolidation or large pleural effusion is identified. No pneumothorax is seen. The skeletal structures are osteopenic. The bony thorax is grossly intact. IMPRESSION: Cardiomegaly with pulmonary vascular congestion. ACT 112: Negative or not required by law. Electronically signed by: Eduar Landaverde M.D. 03/02/2023 7:22 AM Tibia/Fibula X-Ray 03/02/23 03:04 LEFT TIBIA AND FIBULA 2 VIEWS CLINICAL HISTORY: Infection. FINDINGS: AP and lateral views of the left tibia and fibula are obtained. No prior studies are available for comparison at the time of dictation. The skeletal structures appear osteopenic. There is no radiographic evidence of left tibial or fibular fracture. No bony erosion or periostitis is seen. The knee and ankle joints are grossly maintained. Soft tissue edema is present throughout the left leg. No radiodense foreign body or soft tissue gas is seen. There is a large plantar heel spur. IMPRESSION: Soft tissue edema with no acute bony abnormality identified. Electronically signed by: Eduar Landaverde M.D. 03/02/2023 6:54 AM Venous Doppler Study 03/02/23 03:04 ULTRASOUND LEFT LOWER EXTREMITY VENOUS CLINICAL HISTORY: Left leg swelling and erythema. COMPARISON STUDY: No priors. TECHNIQUE: Real-time, grayscale, and color Doppler sonography of the deep veins of the left lower extremity was performed from the inguinal crease to the calf. Compression and augmentation were utilized. FINDINGS: There is no sonographic evidence of deep venous thrombosis identified in the left lower extremity. The common femoral, superficial femoral, and popliteal veins are patent and normally compressible. The greater saphenous vein and the profunda femoris vein at the junction with the common femoral vein are clear. The visualized calf veins are patent. Soft tissue edema is noted in the left leg. Prominent left groin nodes are likely reactive. IMPRESSION: There is no sonographic evidence of deep venous thrombosis identified in the left lower extremity. ACT 112: Negative or not required by law. Electronically signed by: Eduar Landaverde M.D. 03/02/2023 6:41 AM Pending Results Patient Have Any Pending Studies at Discharge: No Discharge Instructions Given to Patient (Per Discharging Provider) MEDICATION CHANGES: Doxycycline 100 mg twice daily for additional 10 days. Florastor 250 mg daily for additional 10 days. Recommend Tylenol 650 mg as needed for pain. RECOMMENDATIONS FOR FOLLOW-UP: He will need daily dressing changes. Wound directions as follows: Wash leg and pat dry, clean wound with saline, cover with Full sheets of Aquacel Ag, skinfold manager social responsibility (if available), ABDs and Kerlix. Change every day and as needed for drainage. Do not allow wet dressings to remain in place. It is recommended [facility] follow-[facility] at [facility] by calling [phone] Pt had a positive nasal MRSA screen and contact precautions are recommended. OTHER INSTRUCTIONS: Seek medical attention if you have: * temperature above 101 * chest pain or trouble breathing * abdominal pain, nausea, vomiting * diarrhea, dark stools or bloody stools * any unanswered questions or concerns Call 911 if symptoms are severe. Please take good care of yourself. It has been a pleasure taking care of you. Please take care of yourself. If you have any questions regarding your recent hospitalization please contact [facility] and request [facility] @ [phone]. Fabiana Diaz PA-C Total Time Total Time Spent Total Time Spent (In Minutes): 45 minutes Supervising Physician Co-Signing Physician Notes Patient seen and examined independently. Discussed with above provider. CRP down trended. Clinically, redness and swelling has improved. Plan to discharge on doxycycline for 10 more days. Will need continued wound care at [facility] and as outpatient.
== END 2023-03-08 14:26 | DRG 603 ==
LOC: ED 02:38 → SUATTDRO 04:39 → 3E 04:39